=== PATIENT | male | born 1970 | race American Indian/Alaskan Native ===

== ENCOUNTER 2016-08-23 08:46 | Inpatient (IN) | payer OTHER ==
[2016-08-23 09:34] LABS: Basophils % (Auto) 0.9 % (0.0-1.8); Eosinophils % (Auto) 2.7 % (0.0-4.3); Hematocrit 42.8 % (35.5-45.6); Hemoglobin 14.3 gm/dl (11.8-15.2); Mean Corpuscular HGB Conc 33 % (32-34); Mean Corpuscular Hemoglobin 28 pg (28-32); Mean Corpuscular Volume 83 fl (84-94); Platelet Count 167 K/mm3 (140-440); Red Blood Count 5.13 M/mm3 (3.65-5.03); Red Cell Distribution Width 13.9 % (13.2-15.2); White Blood Count 7.5 K/mm3 (4.5-11.0)
--- NOTE | 2016-08-23 09:55 | XRay Report ---
ROUTINE CHEST, TWO VIEWS: HISTORY: Shortness of breath. The trachea, heart, mediastinal contour, lung block and bony thorax are unremarkable. IMPRESSION: Unremarkable chest x-ray.
[2016-08-23 11:01] LABS: BUN/Creatinine Ratio 12.22; Blood Urea Nitrogen 11 mg/dL (9-20); Carbon Dioxide 25 mmol/L (22-30); Glucose 141 mg/dL (75-100)
[2016-08-23 11:02] LABS: Anion Gap 18 mmol/L; Chloride 98.4 mmol/L (98-107); Potassium 3.6 mmol/L (3.6-5.0); Sodium 138 mmol/L (137-145)
--- NOTE | 2016-08-23 17:17 | Emergency Department Report ---
ED Shortness of Breath HPI - General Chief Complaint: Dyspnea/Respdistress Stated Complaint: SOB Time Seen by Provider: 08/23/16 17:03 Source: patient Mode of arrival: Ambulatory Limitations: No Limitations - History of Present Illness Initial Comments: Patient is a 46-year-old male patient hypertension and diabetes presenting to the ER or shortness of breath. Patient reports he's been feeling increasing shortness of breath for the last 2 months, exacerbated with movement and alleviated with rest. Associated dry cough. at the bedside reports patient can barely make it up a flight of stairs or to the bathroom without feeling short of breath. Patient reports orthopnea sleeping on 3 pillows and intermittent swelling of his lower extremities. Patient has no primary care follow-up and reports he gets medications from the ER. at the bedside also reports a unintentional 30 pound weight loss over the last 6 months. Otherwise no fevers, chills, headache, dizziness, nausea, vomiting, chest pain, abdominal pain, travel, trauma, falls, or sick contacts - Related Data Previous Rx's Medication Instructions Recorded Last Taken Type Lisinopril [Zestril TAB] 10 mg PO QDAY #30 tablet 11/04/15 Unknown Rx amLODIPine [Norvasc] 5 mg PO DAILY #30 tab 11/04/15 Unknown Rx glipiZIDE XL [Glucotrol Xl] 5 mg PO QAM #30 tab.er.24 11/04/15 Unknown Rx metFORMIN [Glucophage] 500 mg PO BID #60 tablet 11/04/15 Unknown Rx Allergies Allergy/AdvReac Type Severity Reaction Status Date / Time No Known Allergies Allergy Unverified 11/04/15 10:28 ED Review of Systems ROS: Stated complaint: SOB Other details as noted in HPI Comment: All other systems reviewed and negative ED Past Medical Hx - Past Medical History Previous Medical History?: Yes Hx Hypertension: Yes Hx Dementia: Yes - Surgical History Past Surgical History?: No - Social History Smoking Status: Never Smoker Substance Use Type: Alcohol - Medications Home Medications: Home Medications Medication Instructions Recorded Confirmed Last Taken Type Lisinopril [Zestril TAB] 10 mg PO QDAY #30 tablet 11/04/15 08/23/16 Unknown Rx amLODIPine [Norvasc] 5 mg PO DAILY #30 tab 11/04/15 08/23/16 Unknown Rx glipiZIDE XL [Glucotrol Xl] 5 mg PO QAM #30 tab.er.24 11/04/15 08/23/16 Unknown Rx metFORMIN [Glucophage] 500 mg PO BID #60 tablet 11/04/15 08/23/16 Unknown Rx ED Physical Exam - General Limitations: No Limitations General appearance: alert, in no apparent distress - Head Head exam: Present: atraumatic, normocephalic - Eye Eye exam: Present: normal appearance - ENT ENT exam: Present: mucous membranes moist - Neck Neck exam: Present: normal inspection - Respiratory Respiratory exam: Present: normal lung sounds bilaterally. Absent: respiratory distress - Cardiovascular Cardiovascular Exam: Present: regular rate, normal rhythm. Absent: systolic murmur, diastolic murmur, rubs, gallop - GI/Abdominal GI/Abdominal exam: Present: soft, normal bowel sounds - Rectal Rectal exam: Present: deferred - Extremities Exam Extremities exam: Present: normal inspection - Back Exam Back exam: Present: normal inspection - Neurological Exam Neurological exam: Present: alert, oriented X3 - Psychiatric Psychiatric exam: Present: normal affect, normal mood - Skin Skin exam: Present: warm, dry, intact, normal color. Absent: rash ED Course Vital Signs 08/23/16 08/23/16 08/23/16 08:53 17:10 17:38 Temperature 98.6 F 97.9 F Pulse Rate 95 H 89 Respiratory 16 16 Rate Blood Pressure 151/100 Blood Pressure 151/106 [Left] O2 Sat by Pulse 100 100 98 Oximetry 08/23/16 08/23/16 08/23/16 17:41 17:51 17:58 Temperature Pulse Rate 88 87 Respiratory 19 20 20 Rate Blood Pressure 154/104 162/103 Blood Pressure [Left] O2 Sat by Pulse 100 99 100 Oximetry 08/23/16 08/23/16 08/23/16 18:16 18:21 18:30 Temperature Pulse Rate 91 H 90 85 Respiratory 21 12 Rate Blood Pressure 162/103 161/106 172/115 Blood Pressure [Left] O2 Sat by Pulse 99 98 99 Oximetry 08/23/16 08/23/16 18:45 18:48 Temperature Pulse Rate 89 89 Respiratory Rate Blood Pressure 172/115 Blood Pressure [Left] O2 Sat by Pulse Oximetry ED Medical Decision Making - Lab Data Result diagrams: 08/23/16 09:15 08/23/16 09:15 - EKG Data -: EKG Interpreted by Me - EKG Data 08/23/16 17:16 EKG 0853 normal sinus rhythm at 85 bpm, QTc 476 ms, normal axis, borderline LVH , no ST changes, no STEMI - Radiology Data Radiology results: report reviewed CXR: No acute cardiopulmonary findings no acute cardiopulmonary findings CTA: No acute PE - Medical Decision Making Results discussed with patient Pt to be admitted to hospitalist for new onset CHF Critical care attestation.: If time is entered above; I have spent that time in minutes in the direct care of this critically ill patient, excluding procedure time. ED Disposition Clinical Impression: CHF (congestive heart failure), Dyspnea Disposition: OP ADMIT IP TO THIS HOSP Is pt being admited?: Yes Condition: Stable Instructions: Heart Failure (ED)
[2016-08-23] MEDS ORDERED: NACL ONE (18:09)
[2016-08-23] MEDS ORDERED: NORVASC PO ONE (18:39)
--- NOTE | 2016-08-23 18:46 | Cat Scan Report ---
FINAL REPORT PROCEDURE: CT ANGIO CHEST TECHNIQUE: Computerized tomographic angiography of the chest was performed after the IV injection of iodinated nonionic contrast including image processing. The image data was postprocessed using 2-dimensional multiplanar reformatted (MPR) and 3-dimensional (MIP and/or volume rendered) techniques. HISTORY: rule out PE COMPARISON: No prior studies are available for comparison. FINDINGS: Heart and pericardium: No pericardial effusion or thickening. Thoracic aorta: Normal. Pulmonary vasculature: Normal. Lymph nodes: No enlarged thoracic lymph nodes. Lungs: Normal. Pleural space: No effusion, thickening, or pneumothorax. Musculoskeletal structures: No significant abnormality. Upper abdominal structures: No significant abnormality. IMPRESSION: No evidence of pulmonary emboli
[2016-08-23 19:11] LABS: Bilirubin,Urine NEG (Negative); Blood,Urine NEG (Negative); Ketones,Urine NEG (Negative); Leukocyte Esterase,Urine NEG (Negative); Mucus,Urine FEW /HPF; Nitrite,Urine NEG (Negative); Protein,Urine <15 mg/dL mg/dL (Negative); Urobilinogen,Urine < 2.0 mg/dL (<2.0); WBC,Urine < 1.0 /HPF (0.0-6.0)
--- NOTE | 2016-08-23 19:16 | History and Physical Report ---
History of Present Illness Date of admission: I get short of breath Chief complaint: I cant breathe History of present illness: 46 YO Male with HTN, DM, Medication Noncompliance presents to ED for evaluation. Pt states that he has experienced shortness of breath for the past 2 months, with worsening symptoms over the past 2 days. Pt acknowledges orthopnea, PND. Pt states that he is unable to walk up 2 flights of stars, and has decreased exercise tolerance. Pt states that symptoms are worse with exertion, and relieved with rest. Pt acknowledges Dry cough, and 30 lbs unintentional weight loss, but denies fever, night sweats, bone pain, or recent ill contacts. Past History Past Medical History: diabetes, hypertension Past Surgical History: No surgical history, Other (reviewed) Social history: , lives with family. denies: smoking, alcohol abuse, prescription drug abuse, IV drug use Family history: hypertension Medications and Allergies Allergies Allergy/AdvReac Type Severity Reaction Status Date / Time No Known Allergies Allergy Unverified 11/04/15 10:28 Home Medications Medication Instructions Recorded Confirmed Last Taken Type Lisinopril [Zestril TAB] 10 mg PO QDAY #30 tablet 11/04/15 08/23/16 Unknown Rx glipiZIDE XL [Glucotrol Xl] 5 mg PO QAM #30 tab.er.24 11/04/15 08/23/16 Unknown Rx metFORMIN [Glucophage] 500 mg PO BID #60 tablet 11/04/15 08/23/16 Unknown Rx ALBUTEROL Inhaler [ProAir HFA 2 puff IH QID PRN #1 inhalation 08/24/16 Unknown Rx Inhaler] Carvedilol [Coreg] 6.25 mg PO BID #60 tablet 08/24/16 Unknown Rx Review of Systems All systems: negative Cardiovascular: orthopnea, shortness of breath, paroxysmal nocturnal dyspnea Exam - Constitutional Vitals: Temp Pulse Resp BP Pulse Ox 97.9 F 89 12 172/115 99 08/23/16 17:10 08/23/16 18:48 08/23/16 18:30 08/23/16 18:45 08/23/16 18:30 General appearance: Present: mild distress - Respiratory Respiratory effort: normal Respiratory: bilateral: diminished, rhonchi - Cardiovascular Rhythm: regular Heart Sounds: Present: S1 & S2 - Extremities Extremities: pulses symmetrical, No edema Peripheral Pulses: within normal limits - Abdominal General gastrointestinal: Present: soft, non-tender, non-distended, normal bowel sounds Male genitourinary: Present: normal - Integumentary Integumentary: Present: clear, warm, dry - Musculoskeletal Musculoskeletal: gait normal, strength equal bilaterally - Psychiatric Psychiatric: appropriate mood/affect, intact judgment & insight - Neurologic Neurologic: CNII-XII intact, moves all extremities Results - Labs CBC & Chem 7: 08/23/16 19:31 08/23/16 19:31 Labs: Abnormal lab results 08/23/16 08/23/16 08/23/16 Range/Units 09:15 09:15 09:15 RBC 5.13 H (3.65-5.03) M/mm3 MCV 83 L (84-94) fl Seg Neutrophils % 76.1 H (40.0-70.0) % Glucose 141 H (75-100) mg/dL NT-Pro-B Natriuret Pep 1236 H (0-450) pg/mL Assessment and Plan - Patient Problems (1) Acute respiratory failure Current Visit: Yes Status: Acute Qualifiers: Respiratory failure complication: R Plan to address problem: supplemental oxygen, nebs, aspiration precautions, supportive care, (2) Accelerated hypertension Current Visit: Yes Status: Acute Plan to address problem: monitor bp q shift, resume home medications (3) DVT prophylaxis Current Visit: Yes Status: Acute (4) CHF (congestive heart failure) Current Visit: Yes Status: Acute Qualifiers: Congestive heart failure type: C Congestive heart failure chronicity: C Plan to address problem: cardiology consulted, serial cardiac enzymes, telemetry, supportive care
[2016-08-23] MEDS ORDERED: DUONEB 0.5 MG-3 MG/3 ML SOLN IH PRN (19:17)
[2016-08-23] MEDS ORDERED: DULCOLAX PR PRN (19:17)
[2016-08-23] MEDS ORDERED: TYLENOL PO PRN (19:17)
[2016-08-23] MEDS ORDERED: ZOFRAN IV PRN (19:17)
[2016-08-23] MEDS ORDERED: MILK OF MAGNESIA PO PRN (19:17)
[2016-08-23] MEDS ORDERED: D50W (25GM) IV PRN (19:22)
--- NOTE | 2016-08-23 19:22 | Admit Criteria Form ---
Admission Criteria Documentation: HEART FAILURE: COMMON COMPLICATIONS Clinical Indications for Inpatient Care (Place 'X' for any and all applicable criteria): Ongoing inpatient care may be indicated for heart failure with ANY ONE of the following (1)(2)(3)(4)(5): [ ]I. Ongoing need for care for primary condition requiring frequent therapy adjustments because of changes in cardiac function (eg, drug dosage changes for drugs that are renally metabolized) [X ]II. New-onset heart failure [ ]III. Heart failure with decreased urine output not responsive to attempts to optimize volume status [ ]IV. Acute cardiac ischemia causing or associated with failure [ ]V. Complications of heart failure, including ANY ONE of the following: [ ]a) Pericardial effusion [ ]b) Symptomatic pleural effusion [ ]c) O2 saturation <90% or PO2 < 60 mm Hg (8.0 kPa) on room air or require baseline supplemental O2 [ ]d) Tachypnea [ ]e) Dyspnea [ ]f) Syncope [ ]g) Change in mental status [ ]h) Acute renal insufficiency that is severe (reduction of more than 50% in estimated glomerular filtration rate from baseline) or progressive reduction of more than 25% in estimated glomerular filtration rate from baseline, with creatinine continuing to rise) [ ]i) Hemodynamic instability [ ]j) Anasarca [ ]k) Clinically significant metabolic abnormalities due to heart failure (eg, new-onset metabolic acidosis) Extended stay beyond goal length of stay for primary condition may be needed until ALL of the following are present(1)(3): [ ]a) Stable and effective diuretic regimen established (or patient on stable dialysis regimen if in chronic renal failure) [ ]b) Breathing comfortably at rest [ ]c) Saturation of arterial oxygen greater than 90% or at acceptable baseline [ ]d) Pulmonary edema absent or improved [ ]e) Hemodynamic stability [ ]f) Volume status acceptable on oral medication [ ]g) Peripheral or sacral edema absent or improved [ ]h) Renal function stable and manageable at a lower level of care [ ]i) Complications (eg, pleural effusion) resolved or manageable at a lower level of care [ ]j) Patient or caregiver has received written discharge instructions or educational material addressing activity level, diet, discharge medications, follow-up appointment, weight monitoring, and what to do if symptoms worsen The original [facility] content created by [employer] has been revised. The portions of the content which have been revised are identified through the use of italic text or in bold, and [facility] has neither reviewed nor approved the modified material.All other unmodified content is copyright [facility]. Please see references footnoted in the original [facility] edition 2016 Admission Criteria Met: Yes
[2016-08-23] MEDS ORDERED: PROVENTIL IH PRN ×2 (19:25→19:26)
[2016-08-23 19:57] LABS: Basophils % (Auto) 1.1 % (0.0-1.8); Eosinophils % (Auto) 2.8 % (0.0-4.3); Hematocrit 42.2 % (35.5-45.6); Mean Corpuscular HGB Conc 33 % (32-34); Mean Corpuscular Hemoglobin 27 pg (28-32); Mean Corpuscular Volume 83 fl (84-94); Platelet Count 152 K/mm3 (140-440); Red Cell Distribution Width 14.2 % (13.2-15.2); White Blood Count 5.7 K/mm3 (4.5-11.0)
[2016-08-23 20:11] LABS: Anion Gap 16 mmol/L; BUN/Creatinine Ratio 13.33; Blood Urea Nitrogen 12 mg/dL (9-20); Calcium 8.7 mg/dL (8.4-10.2); Carbon Dioxide 27 mmol/L (22-30); Chloride 99.7 mmol/L (98-107); Glucose 126 mg/dL (75-100); Potassium 3.4 mmol/L (3.6-5.0); Sodium 139 mmol/L (137-145)
[2016-08-23] MEDS: NOVOLOG SUB-Q SCH (22:05)
[2016-08-23] MEDS: LOPRESSOR PO SCH (22:17)
[2016-08-24] MEDS: LASIX IV SCH ×2 (05:46→18:15)
--- NOTE | 2016-08-24 09:19 | Progress Note ---
Assessment and Plan Assessment and plan: Patient is a 46-year-old male patient hypertension and diabetes presenting to the ER or shortness of breath. Patient reports he's been feeling increasing shortness of breath for the last 2 months, exacerbated with movement and alleviated with rest. Associated dry cough. at the bedside reports patient can barely make it up a flight of stairs or to the bathroom without feeling short of breath. Patient reports orthopnea sleeping on 3 pillows and intermittent swelling of his lower extremities. Patient has no primary care follow-up and reports he gets medications from the ER. at the bedside also reports a unintentional 30 pound weight loss over the last 6 months. Otherwise no fevers, chills, headache, dizziness, nausea, vomiting, chest pain, abdominal pain, travel, trauma, falls, or sick contacts * Dyspnea: ?CHF vs Asthma- Lasix, strict ins and out, daily weight, cardiology consult, echo, BB, ACEI, cardiac diet, Heart failure education. * Diabetes mellitus-accuchecks achs * Acute respirtory failure with hypoxia-Wean o2, Nebs, PRN. * Hypokalemia-replace * HTN- BB, ACEI., monitor. * DVT/GI prophy * Discharge if ok with cardiology * Plan discussed with the patient in detail. Verbalized understanding. History Interval history: Patient seen and examined today in no acute distress sitting comfortably at bedside with shortness of breath today. No other adverse events reported by nursing staff. Hospitalist Physical - Physical exam Narrative exam: VITAL SIGNS: Reviewed. GENERAL: The patient appeared well nourished and normally developed. Vital signs as documented. HEAD: No signs of head trauma. EYES: Pupils are equal. Extraocular motions intact. EARS: Hearing grossly intact. MOUTH: Oropharynx is normal. NECK: No adenopathy, no JVD. CHEST: Chest with clear breath sounds bilaterally. No wheezes, rales, or rhonchi. CARDIAC: Regular rate and rhythm. S1 and S2, without murmurs, gallops, or rubs. VASCULAR: Trace edema left lower extremity. Peripheral pulses normal and equal in all extremities. ABDOMEN: Soft, without detectable tenderness. No sign of distention. No rebound or guarding, and no masses palpated. Bowel Sounds normal. MUSCULOSKELETAL: Good range of motion of all major joints. Extremities without clubbing, cyanosis. Trace edema left lower extremity. NEUROLOGIC EXAM: Alert and oriented x 3. No focal sensory or strength deficits. Speech normal. Follows commands. PSYCHIATRIC: Mood normal. SKIN: No rash or lesions. - Constitutional Vitals: Temp Pulse Resp BP Pulse Ox 97.9 F 77 20 135/84 99 08/24/16 04:00 08/24/16 04:00 08/24/16 04:00 08/24/16 04:00 08/24/16 09:01 Results - Labs CBC & Chem 7: 08/23/16 19:31 08/23/16 19:31 Labs: Laboratory Last Values WBC 5.7 K/mm3 (4.5-11.0) 08/23/16 19: RBC 5.10 M/mm3 (3.65-5.03) H 08/23/16 19:31 Hgb 14.0 gm/dl (11.8-15.2) 08/23/16 19:31 Hct 42.2 % (35.5-45.6) 08/23/16 19:31 MCV 83 fl (84-94) L 08/23/16 19:31 MCH 27 pg (28-32) L 08/23/16 19:31 MCHC 33 % (32-34) 08/23/16 19:31 RDW 14.2 % (13.2-15.2) 08/23/16 19:31 Plt Count 152 K/mm3 (140-440) 08/23/16 19:31 Lymph % (Auto) 18.6 % (13.4-35.0) 08/23/16 19:31 [place] % (Auto) 3.5 % (0.0-7.3) 08/23/16 19:31 Eos % (Auto) 2.8 % (0.0-4.3) 08/23/16 19:31 Baso % (Auto) 1.1 % (0.0-1.8) 08/23/16 19:31 Lymph # 1.1 K/mm3 (1.2-5.4) L 08/23/16 19:31 [place] # 0.2 K/mm3 (0.0-0.8) 08/23/16 19:31 Eos # 0.2 K/mm3 (0.0-0.4) 08/23/16 19:31 Baso # 0.1 K/mm3 (0.0-0.1) 08/23/16 19:31 Seg Neutrophils % 74.0 % (40.0-70.0) H 08/23/16 19:31 Seg Neutrophils # 4.2 K/mm3 (1.8-7.7) 08/23/16 19:31 Sodium 139 mmol/L (137-145) 08/23/16 19:31 Potassium 3.4 mmol/L (3.6-5.0) L 08/23/16 19:31 Chloride 99.7 mmol/L (98-107) 08/23/16 19:31 Carbon Dioxide 27 mmol/L (22-30) 08/23/16 19:31 Anion Gap 16 mmol/L 08/23/16 19:31 BUN 12 mg/dL (9-20) 08/23/16 19:31 Creatinine 0.9 mg/dL (0.8-1.5) 08/23/16 19:31 Estimated GFR > 60 ml/min 08/23/16 19:31 BUN/Creatinine Ratio 13.33 % 08/23/16 19:31 Glucose 126 mg/dL (75-100) H 08/23/16 19:31 POC Glucose 119 (70-105) H 08/23/16 22:00 Calcium 8.7 mg/dL (8.4-10.2) 08/23/16 19:31 Troponin T < 0.010 ng/mL (0.00-0.029) 08/24/16 03:30 NT-Pro-B Natriuret Pep 1236 pg/mL (0-450) H 08/23/16 09:15 Urine Color Yellow (Yellow) 08/23/16 17:14 Urine Turbidity Clear (Clear) 08/23/16 17:14 Urine pH 6.0 (5.0-7.0) 08/23/16 17:14 Ur Specific Pitcher 1.024 (1.003-1.030) 08/23/16 17:14 Urine Protein <15 mg/dl mg/dL (Negative) 08/23/16 17:14 Urine Glucose (UA) Neg mg/dL (Negative) 08/23/16 17:14 Urine Ketones Neg mg/dL (Negative) 08/23/16 17:14 Urine Blood Neg (Negative) 08/23/16 17:14 Urine Nitrite Neg (Negative) 08/23/16 17:14 Urine Bilirubin Neg (Negative) 08/23/16 17:14 Urine Urobilinogen < 2.0 mg/dL (<2.0) 08/23/16 17:14 Ur Leukocyte Esterase Neg (Negative) 08/23/16 17:14 Urine WBC (Auto) < 1.0 /HPF (0.0-6.0) 08/23/16 17:14 Urine RBC (Auto) 1.0 /HPF (0.0-6.0) 08/23/16 17:14 U Epithel Cells (Auto) < 1.0 /HPF (0-13.0) 08/23/16 17:14 Urine Mucus Few /HPF 08/23/16 17:14
[2016-08-24] MEDS ORDERED: ZESTRIL PO SCH ×2 (10:00→13:49)
[2016-08-24] MEDS: NOVOLOG SUB-Q SCH ×2 (10:37→21:56)
[2016-08-24] MEDS: LOPRESSOR PO SCH ×2 (10:39→21:56)
--- NOTE | 2016-08-24 10:53 | Discharge Summary ---
Providers - Providers Date of Admission: 08/23/16 19:17 Date of discharge: 08/24/16 Attending physician: NEW FRANCIS MD 08/24/16 09:13 Consult to Physician [CONS] Routine Consulting Provider: GUADALUPE FLORES Reason For Exam: chf Primary care physician: POSTDOCTORAL FELLOW Hospitalization Condition: Stable Disposition: DC-01 TO HOME OR SELFCARE Time spent for discharge: 35 mins Exam - Constitutional Vitals: Temp Pulse Resp BP Pulse Ox 98.6 F 74 20 165/103 99 08/24/16 08:10 08/24/16 10:39 08/24/16 08:10 08/24/16 10:39 08/24/16 09:01 Plan Activity: advance as tolerated, fall precautions Diet: low salt, diabetic Special Instructions: restrict fluid intake to (1200cc/day), record daily weights, record daily BP diary Follow up with: ALEJANDRO JEAN MD [Primary Care Provider] - 3-5 Days GUADALUPE FLORES MD [Staff Physician] - 7 Days Prescriptions: ALBUTEROL Inhaler [ProAir HFA Inhaler] 2 puff IH QID PRN #1 inhalation PRN Reason: Shortness Of Breath Carvedilol [Coreg] 12.5 mg PO BID #60 tablet Spironolactone [Aldactone] 25 mg PO QDAY #30 tablet
[2016-08-24] MEDS ORDERED: K-DUR PO ONE (11:00)
[2016-08-24] MEDS ORDERED: PNEUMOVAX 23 IM ONE (12:00)
--- NOTE | 2016-08-24 13:42 | Consultation ---
History of Present Illness Consult date: 08/24/16 Requesting physician: NEW ZAVALA Consult reason: congestive heart failure History of present illness: The patient is a 46 year old male with a history of hypertension and diabetes who presented with complaints of progressive dyspnea and orthopnea over the past 2 months. He denies any chest pain, palpitations, nausea, vomiting, fever or chills. Chest CTA negative for PE. Troponin negative x 4. BNP 1236. Pt. denies previous diagnosis of heart failure. No previous cardiac evaluation. Past History Past Medical History: diabetes, hypertension Past Surgical History: No surgical history Social history: full code. denies: smoking, alcohol abuse, IV drug use Family history: no significant family history Medications and Allergies Allergies Allergy/AdvReac Type Severity Reaction Status Date / Time No Known Allergies Allergy Unverified 11/04/15 10:28 Home Medications Medication Instructions Recorded Confirmed Last Taken Type Lisinopril [Zestril TAB] 10 mg PO QDAY #30 tablet 11/04/15 08/23/16 Unknown Rx glipiZIDE XL [Glucotrol Xl] 5 mg PO QAM #30 tab.er.24 11/04/15 08/23/16 Unknown Rx metFORMIN [Glucophage] 500 mg PO BID #60 tablet 11/04/15 08/23/16 Unknown Rx ALBUTEROL Inhaler [ProAir HFA 2 puff IH QID PRN #1 inhalation 08/24/16 Unknown Rx Inhaler] Carvedilol [Coreg] 6.25 mg PO BID #60 tablet 08/24/16 Unknown Rx Active Meds: Active Medications Acetaminophen (Tylenol) 650 mg PO Q4H PRN PRN Reason: Pain MILD(1-3)/Fever >100.5/LEON Albuterol (Proventil) 2.5 mg IH Q4HRT PRN PRN Reason: Shortness Of Breath Bisacodyl (Dulcolax) 10 mg ID QDAY PRN PRN Reason: Constipation unrelieved by MOM Dextrose (D50w (25gm)) 50 ml IV PRN PRN PRN Reason: Hypoglycemia Furosemide (Lasix) 20 mg IV BID@0600,1800 [facility] Last Admin: 08/24/16 05:46 Dose: 20 mg Insulin Aspart (Novolog) 0 units SUB-Q ACHS ADITI PRN Reason: Protocol Last Admin: 08/24/16 10:37 Dose: Not Given Lisinopril (Zestril) 2.5 mg PO QDAY [facility] Last Admin: 08/24/16 10:38 Dose: 2.5 mg Magnesium Hydroxide (Milk Of Magnesia) 30 ml PO Q4H PRN PRN Reason: Constipation Metoprolol Tartrate (Lopressor) 25 mg PO BID [facility] Last Admin: 08/24/16 10:39 Dose: 25 mg Ondansetron HCl (Zofran) 4 mg IV Q8H PRN PRN Reason: N/V unrelieved by [facility] Review of Systems Constitutional: no fever, no chills Ears, nose, mouth and throat: no nasal congestion, no nasal discharge, no sinus pressure Cardiovascular: orthopnea, shortness of breath, dyspnea on exertion, no chest pain, no palpitations Respiratory: shortness of breath, dyspnea on exertion, no congestion, no wheezing Gastrointestinal: no abdominal pain, no nausea, no vomiting, no diarrhea Genitourinary Male: no dysuria, no hematuria Musculoskeletal: no neck stiffness, no neck pain, no myalgias Integumentary: no rash, no pruritis Neurological: no parathesias, no numbness, no tingling, no headaches Endocrine: no cold intolerance, no heat intolerance Hematologic/Lymphatic: no easy bruising, no easy bleeding Allergic/Immunologic: no urticaria, no wheezing Physical Examination Vital Signs Temp Pulse Resp BP Pulse Ox 98.6 F 95 H 16 151/100 100 08/23/16 08:53 08/23/16 08:53 08/23/16 08:53 08/23/16 08:53 08/23/16 08:53 General appearance: no acute distress HEENT: Positive: Normocephaly, Mucus Membranes Moist Neck: Positive: neck supple, trachea midline Cardiac: Positive: Reg Rate and Rhythm, S1/S2 Lungs: Positive: clear to auscultation Neuro: Positive: Grossly Intact Abdomen: Positive: Soft, Active Bowel Sounds. Negative: Tender Skin: Positive: Clear. Negative: Rash Extremities: Present: normal. Absent: edema Results 08/23/16 19:31 08/23/16 19:31 CBC 08/23/16 Range/Units 19:31 WBC 5.7 (4.5-11.0) K/mm3 RBC 5.10 H (3.65-5.03) M/mm3 Hgb 14.0 (11.8-15.2) gm/dl Hct 42.2 (35.5-45.6) % Plt Count 152 (140-440) K/mm3 Lymph # 1.1 L (1.2-5.4) K/mm3 [place] # 0.2 (0.0-0.8) K/mm3 Eos # 0.2 (0.0-0.4) K/mm3 Baso # 0.1 (0.0-0.1) K/mm3 Comprehensive Metabolic Panel 08/23/16 Range/Units 19:31 Sodium 139 (137-145) mmol/L Potassium 3.4 L (3.6-5.0) mmol/L Chloride 99.7 (98-107) mmol/L Carbon Dioxide 27 (22-30) mmol/L BUN 12 (9-20) mg/dL Creatinine 0.9 (0.8-1.5) mg/dL Glucose 126 H (75-100) mg/dL Calcium 8.7 (8.4-10.2) mg/dL - Imaging and Cardiology Echo: pending EKG: image reviewed EKG interpretations - Telemetry EKG Rhythm: Sinus Rhythm - EKG Sinus rhythms and dysrhythmias: sinus rhythm Chamber hypertrophy or enlargement: left ventricular hypertro Repolarization changes or abnormalities: nonspecific abnormality, ST segment, and/or T wave Assessment and Plan Dyspnea, possible acute heart failure Chest CTA negative for PE Troponin negative x 4 BNP 1236 Continue lasix, metoprolol, lisinopril Await echo findings Pt. encouraged to ambulate Hypertension Diabetes Agree with current regimen. Await echo findings. Pt. encouraged to ambulate. The patient has been seen in conjunction with Dr. Reynoso who agrees with the assessment and plan of care. Thank you Dr. Zavala for allowing us to participate in the care of this patient.
[2016-08-24] MEDS: ZESTRIL PO SCH (18:14)
[2016-08-25] MEDS: LASIX IV SCH ×2 (05:03→18:18)
[2016-08-25] MEDS: NOVOLOG SUB-Q SCH ×5 (08:27→21:18)
[2016-08-25] MEDS: ZESTRIL PO SCH (11:13)
[2016-08-25] MEDS: LOPRESSOR PO SCH (11:13)
--- NOTE | 2016-08-25 12:10 | Progress Note ---
Assessment and Plan Acute systolic heart failure Chest CTA negative for PE Troponin negative x 4 BNP 1236 Continue lasix, lisinopril. Convert lopressor to Coreg. Pt. encouraged to ambulate CMP EF 30 - 35%. Convert lopressor to Coreg. Plan for lexiscan MPI stress test in AM. NPO after MN. Hypertension Diabetes Echo reviewed - EF 30 - 35%, restrictive LV diastolic filling pattern, LV mild to moderately dilated, mild MR< trace TR. Convert Lopressor to Coreg in setting of CMP. Add aldactone. Plan for lexiscan MPI stress test in AM. NPO after MN. Obtain lipid panel in AM. The patient has been seen in conjunction with Dr. Reynoso who agrees with the assessment and plan of care. Subjective Date of service: 08/25/16 Principal diagnosis: HF Interval history: Pt resting comfortably in bed, denies any complaints, VSS. Objective Vital Signs Temp Pulse Pulse Resp BP BP Pulse Ox 08/25/16 08:47 77 08/25/16 04:00 62 08/25/16 01:58 98.8 F 77 20 154/98 100 08/24/16 21:00 98.3 F 76 18 165/100 08/24/16 18:14 175/114 08/24/16 16:37 98.6 F 83 18 175/114 99 - Physical Examination General: Appears Well, No Apparent Distress HEENT: Positive: PERRL, Normocephaly, Mucus Membranes Moist Neck: Positive: neck supple, trachea midline Cardiac: Positive: Reg Rate and Rhythm, S1/S2 Lungs: Positive: clear to auscultation Neuro: Positive: Grossly Intact Abdomen: Positive: Soft, Active Bowel Sounds. Negative: Tender Skin: Positive: Clear. Negative: Rash Extremities: Present: normal. Absent: edema - Imaging and Cardiology EKG: image reviewed Echo: report reviewed - EKG Sinus rhythms and dysrhythmias: sinus rhythm Chamber hypertrophy or enlargement: left ventricular hypertro Repolarization changes or abnormalities: nonspecific abnormality, ST segment, and/or T wave
--- NOTE | 2016-08-25 16:23 | Progress Note ---
Assessment and Plan Assessment and plan: Patient is a 46-year-old male patient hypertension and diabetes presenting to the ER or shortness of breath. Patient reports he's been feeling increasing shortness of breath for the last 2 months, exacerbated with movement and alleviated with rest. Associated dry cough. at the bedside reports patient can barely make it up a flight of stairs or to the bathroom without feeling short of breath. Patient reports orthopnea sleeping on 3 pillows and intermittent swelling of his lower extremities. Patient has no primary care follow-up and reports he gets medications from the ER. at the bedside also reports a unintentional 30 pound weight loss over the last 6 months. Otherwise no fevers, chills, headache, dizziness, nausea, vomiting, chest pain, abdominal pain, travel, trauma, falls, or sick contacts * Acute systolic heart failure- EF 30 - 35%, restrictive LV diastolic filling pattern, LV mild to moderately dilated. continue Lasix, strict ins and out, daily weight, BB, ACEI, aldactone added, Cardiac diet, Heart failure education. Lipid panel. stress test planned in the am. * Diabetes mellitus-accuchecks achs * Acute respirtory failure with hypoxia-Wean o2, Nebs, PRN. * Hypokalemia-replace * HTN- BB, ACEI., monitor. * DVT/GI prophy * Discharge if ok with cardiology * Plan discussed with the patient in detail. He Verbalized understanding. History Interval history: Patient seen and examined today in no acute distress sitting comfortably at bedside with no reported shortness of breath today. No other adverse events reported by nursing staff. Hospitalist Physical - Physical exam Narrative exam: VITAL SIGNS: Reviewed. GENERAL: The patient appeared well nourished and normally developed. Vital signs as documented. HEAD: No signs of head trauma. EYES: Pupils are equal. Extraocular motions intact. EARS: Hearing grossly intact. MOUTH: Oropharynx is normal. NECK: No adenopathy, no JVD. CHEST: Chest with clear breath sounds bilaterally. No wheezes, rales, or rhonchi. CARDIAC: Regular rate and rhythm. S1 and S2, without murmurs, gallops, or rubs. VASCULAR: Trace edema left lower extremity. Peripheral pulses normal and equal in all extremities. ABDOMEN: Soft, without detectable tenderness. No sign of distention. No rebound or guarding, and no masses palpated. Bowel Sounds normal. MUSCULOSKELETAL: Good range of motion of all major joints. Extremities without clubbing, cyanosis. Trace edema left lower extremity. NEUROLOGIC EXAM: Alert and oriented x 3. No focal sensory or strength deficits. Speech normal. Follows commands. PSYCHIATRIC: Mood normal. SKIN: No rash or lesions. - Constitutional Vitals: Temp Pulse Resp BP Pulse Ox 98.0 F 92 H 12 147/92 100 08/25/16 15:11 08/25/16 15:11 08/25/16 15:11 08/25/16 15:11 08/25/16 15:11 General appearance: Present: mild distress Results - Labs CBC & Chem 7: 08/23/16 19:31 08/23/16 19:31 Labs: Laboratory Last Values WBC 5.7 K/mm3 (4.5-11.0) 08/23/16 19:31 RBC 5.10 M/mm3 (3.65-5.03) H 08/23/16 19:31 Hgb 14.0 gm/dl (11.8-15.2) 08/23/16 19:31 Hct 42.2 % (35.5-45.6) 08/23/16 19:31 MCV 83 fl (84-94) L 08/23/16 19:31 MCH 27 pg (28-32) L 08/23/16 19:31 MCHC 33 % (32-34) 08/23/16 19:31 RDW 14.2 % (13.2-15.2) 08/23/16 19:31 Plt Count 152 K/mm3 (140-440) 08/23/16 19:31 Lymph % (Auto) 18.6 % (13.4-35.0) 08/23/16 19:31 [place] % (Auto) 3.5 % (0.0-7.3) 08/23/16 19:31 Eos % (Auto) 2.8 % (0.0-4.3) 08/23/16 19:31 Baso % (Auto) 1.1 % (0.0-1.8) 08/23/16 19:31 Lymph # 1.1 K/mm3 (1.2-5.4) L 08/23/16 19:31 [place] # 0.2 K/mm3 (0.0-0.8) 08/23/16 19:31 Eos # 0.2 K/mm3 (0.0-0.4) 08/23/16 19:31 Baso # 0.1 K/mm3 (0.0-0.1) 08/23/16 19:31 Seg Neutrophils % 74.0 % (40.0-70.0) H 08/23/16 19:31 Seg Neutrophils # 4.2 K/mm3 (1.8-7.7) 08/23/16 19:31 Sodium 139 mmol/L (137-145) 08/23/16 19:31 Potassium 3.4 mmol/L (3.6-5.0) L 08/23/16 19:31 Chloride 99.7 mmol/L (98-107) 08/23/16 19:31 Carbon Dioxide 27 mmol/L (22-30) 08/23/16 19:31 Anion Gap 16 mmol/L 08/23/16 19:31 BUN 12 mg/dL (9-20) 08/23/16 19:31 Creatinine 0.9 mg/dL (0.8-1.5) 08/23/16 19:31 Estimated GFR > 60 ml/min 08/23/16 19:31 BUN/Creatinine Ratio 13.33 % 08/23/16 19:31 Glucose 126 mg/dL (75-100) H 08/23/16 19:31 POC Glucose 131 (70-105) H 08/24/16 21:36 Calcium 8.7 mg/dL (8.4-10.2) 08/23/16 19:31 Troponin T < 0.010 ng/mL (0.00-0.029) 08/24/16 03:30 NT-Pro-B Natriuret Pep 1236 pg/mL (0-450) H 08/23/16 09:15 Urine Color Yellow (Yellow) 08/23/16 17:14 Urine Turbidity Clear (Clear) 08/23/16 17:14 Urine pH 6.0 (5.0-7.0) 08/23/16 17:14 Ur Specific [place] 1.024 (1.003-1.030) 08/23/16 17:14 Urine Protein <15 mg/dl mg/dL (Negative) 08/23/16 17:14 Urine Glucose (UA) Neg mg/dL (Negative) 08/23/16 17:14 Urine Ketones Neg mg/dL (Negative) 08/23/16 17:14 Urine Blood Neg (Negative) 08/23/16 17:14 Urine Nitrite Neg (Negative) 08/23/16 17:14 Urine Bilirubin Neg (Negative) 08/23/16 17:14 Urine Urobilinogen < 2.0 mg/dL (<2.0) 08/23/16 17:14 Ur Leukocyte Esterase Neg (Negative) 08/23/16 17:14 Urine WBC (Auto) < 1.0 /HPF (0.0-6.0) 08/23/16 17:14 Urine RBC (Auto) 1.0 /HPF (0.0-6.0) 08/23/16 17:14 U Epithel Cells (Auto) < 1.0 /HPF (0-13.0) 08/23/16 17:14 Urine Mucus Few /HPF 08/23/16 17:14 - Imaging and Cardiology Imaging and Cardiology: Echocardiogram reviewed.
[2016-08-25] MEDS: ALDACTONE PO SCH (18:17)
[2016-08-25] MEDS: COREG PO SCH (21:17)
[2016-08-26] MEDS: LASIX IV SCH (05:58)
[2016-08-26 06:13] LABS: Anion Gap 17 mmol/L; BUN/Creatinine Ratio 23.75; Blood Urea Nitrogen 19 mg/dL (9-20); Calcium 8.4 mg/dL (8.4-10.2); Carbon Dioxide 25 mmol/L (22-30); Chloride 103.2 mmol/L (98-107); Glucose 151 mg/dL (75-100); Potassium 3.7 mmol/L (3.6-5.0); Sodium 141 mmol/L (137-145)
[2016-08-26 06:21] LABS: Cholesterol 140 mg/dL (50-199); HDL Cholesterol 37 mg/dL (40-59); LDL Cholesterol,Direct 86 mg/dL (50-130); Triglycerides 87 mg/dL (2-149)
[2016-08-26] MEDS: NOVOLOG SUB-Q SCH ×4 (07:07→21:55)
[2016-08-26] MEDS ORDERED: LEXISCAN IV ONE ×2 (09:47→09:50)
[2016-08-26] MEDS: ZESTRIL PO SCH (10:05)
[2016-08-26] MEDS: ALDACTONE PO SCH (10:06)
[2016-08-26] MEDS: COREG PO SCH ×2 (10:07→21:53)
--- NOTE | 2016-08-26 10:48 | Progress Note ---
Assessment and Plan Acute systolic heart failure Chest CTA negative for PE Troponin negative x 4 BNP 1236 Continue lisinopril, coreg. Convert IV lasix to PO, 40mg daily. CMP EF 30 - 35%. Cont ACEI, BB, and aldactone. Proceed with stress test. Await findings. Hypertension Diabetes Dyslipidemia Lipid panel reviewed - in setting of DM, goal LDL is <70. Initiate lipitor, 20mg daily. Proceed with stress MPI. Await findings. Pending stress test is negative for ischemia, pt may discharge home today. The patient has been seen in conjunction with Dr. REYNA Hilliard who agrees with the assessment and plan of care. Subjective Date of service: 08/26/16 Principal diagnosis: HF Interval history: Pt seen in stress lab, denies any complaints. VSS. Objective Last Vital Signs Temp 98.0 F 08/26/16 04:52 Pulse 60 08/26/16 05:00 Resp 18 08/26/16 04:52 BP 122/80 08/26/16 04:52 Pulse Ox 98 08/26/16 04:52 - Physical Examination General: Appears Well, No Apparent Distress HEENT: Positive: PERRL, Normocephaly, Mucus Membranes Moist Neck: Positive: neck supple, trachea midline Cardiac: Positive: Reg Rate and Rhythm, S1/S2 Lungs: Positive: Normal Exam, clear to auscultation, Normal Breath Sounds Neuro: Positive: Grossly Intact Abdomen: Positive: Soft, Active Bowel Sounds. Negative: Tender Skin: Positive: Clear. Negative: Rash Extremities: Present: normal. Absent: edema - Labs and Meds Lipids 08/26/16 Range/Units 05:11 Triglycerides 87 (2-149) mg/dL Cholesterol 140 (50-199) mg/dL HDL Cholesterol 37 L (40-59) mg/dL Cholesterol/HDL Ratio 3.78 % Comprehensive Metabolic Panel 08/26/16 Range/Units 05:11 Sodium 141 (137-145) mmol/L Potassium 3.7 (3.6-5.0) mmol/L Chloride 103.2 (98-107) mmol/L Carbon Dioxide 25 (22-30) mmol/L BUN 19 (9-20) mg/dL Creatinine 0.8 (0.8-1.5) mg/dL Glucose 151 H (75-100) mg/dL Calcium 8.4 (8.4-10.2) mg/dL - Imaging and Cardiology EKG: image reviewed Echo: report reviewed - EKG Sinus rhythms and dysrhythmias: sinus rhythm Chamber hypertrophy or enlargement: left ventricular hypertro Repolarization changes or abnormalities: nonspecific abnormality, ST segment, and/or T wave
--- NOTE | 2016-08-26 14:17 | Event Note ---
Date: 08/26/16 S/p stress test this AM, which showed fixed inferior and anterolateral defects, EF 31%. Results reviewed with pt. Coronary angiography recommended for definitive diagnosis. Indications, potential risks, and benefits of LHC reviewed with pt and he is agreeable to proceed with LHC in AM. NPO after MN. Zafar QIU NP / DR. REYNA DICKINSON
[2016-08-26] MEDS ORDERED: NACL 0.9% 500 ML 500 ML IV SCH (15:00)
--- NOTE | 2016-08-26 17:13 | Progress Note ---
Assessment and Plan Assessment and plan: Patient is a 46-year-old male patient hypertension and diabetes presenting to the ER or shortness of breath. Patient reports he's been feeling increasing shortness of breath for the last 2 months, exacerbated with movement and alleviated with rest. Associated dry cough. at the bedside reports patient can barely make it up a flight of stairs or to the bathroom without feeling short of breath. Patient reports orthopnea sleeping on 3 pillows and intermittent swelling of his lower extremities. Patient has no primary care follow-up and reports he gets medications from the ER. at the bedside also reports a unintentional 30 pound weight loss over the last 6 months. Otherwise no fevers, chills, headache, dizziness, nausea, vomiting, chest pain, abdominal pain, travel, trauma, falls, or sick contacts * Acute systolic heart failure- EF 30 - 35%, restrictive LV diastolic filling pattern, LV mild to moderately dilated. Patient proceeded to have a stress test "Verdana 4Id showed fixed inferior and anterolateral defects, EF 31%" Plan is for cardiac cath tomorrow. continue Lasix, strict ins and out, daily weight, BB, ACEI, aldactone added, Cardiac diet, Heart failure education. Lipid panel. stress test planned in the am. * Diabetes mellitus-accuchecks achs * Acute respirtory failure with hypoxia-Now on room air, Nebs, PRN. * Hypokalemia-replaced * HTN- BB, ACEI., monitor. * DVT/GI prophy * Plan discussed with the patient in detail. He Verbalized understanding. History Interval history: Patient seen and examined today in no acute distress anxious about discharge. No other adverse events reported by nursing staff. Hospitalist Physical - Physical exam Narrative exam: VITAL SIGNS: Reviewed. GENERAL: The patient appeared well nourished and normally developed. Vital signs as documented. HEAD: No signs of head trauma. EYES: Pupils are equal. Extraocular motions intact. EARS: Hearing grossly intact. MOUTH: Oropharynx is normal. NECK: No adenopathy, no JVD. CHEST: Chest with clear breath sounds bilaterally. No wheezes, rales, or rhonchi. CARDIAC: Regular rate and rhythm. S1 and S2, without murmurs, gallops, or rubs. VASCULAR: Trace edema left lower extremity. Peripheral pulses normal and equal in all extremities. ABDOMEN: Soft, without detectable tenderness. No sign of distention. No rebound or guarding, and no masses palpated. Bowel Sounds normal. MUSCULOSKELETAL: Good range of motion of all major joints. Extremities without clubbing, cyanosis. Trace edema left lower extremity. NEUROLOGIC EXAM: Alert and oriented x 3. No focal sensory or strength deficits. Speech normal. Follows commands. PSYCHIATRIC: Mood normal. SKIN: No rash or lesions. - Constitutional Vitals: Temp Pulse Resp BP Pulse Ox 98.2 F 77 18 153/94 98 08/26/16 16:59 08/26/16 16:59 08/26/16 16:59 08/26/16 16:59 08/26/16 16:59 General appearance: Present: mild distress Results - Labs CBC & Chem 7: 08/23/16 19:31 08/26/16 05:11 Labs: Laboratory Last Values WBC 5.7 K/mm3 (4.5-11.0) 08/23/16 19:31 RBC 5.10 M/mm3 (3.65-5.03) H 08/23/16 19:31 Hgb 14.0 gm/dl (11.8-15.2) 08/23/16 19:31 Hct 42.2 % (35.5-45.6) 08/23/16 19:31 MCV 83 fl (84-94) L 08/23/16 19:31 MCH 27 pg (28-32) L 08/23/16 19:31 MCHC 33 % (32-34) 08/23/16 19:31 RDW 14.2 % (13.2-15.2) 08/23/16 19:31 Plt Count 152 K/mm3 (140-440) 08/23/16 19:31 Lymph % (Auto) 18.6 % (13.4-35.0) 08/23/16 19:31 [place] % (Auto) 3.5 % (0.0-7.3) 08/23/16 19:31 Eos % (Auto) 2.8 % (0.0-4.3) 08/23/16 19:31 Baso % (Auto) 1.1 % (0.0-1.8) 08/23/16 19:31 Lymph # 1.1 K/mm3 (1.2-5.4) L 08/23/16 19:31 [place] # 0.2 K/mm3 (0.0-0.8) 08/23/16 19:31 Eos # 0.2 K/mm3 (0.0-0.4) 08/23/16 19:31 Baso # 0.1 K/mm3 (0.0-0.1) 08/23/16 19:31 Seg Neutrophils % 74.0 % (40.0-70.0) H 08/23/16 19:31 Seg Neutrophils # 4.2 K/mm3 (1.8-7.7) 08/23/16 19:31 Sodium 141 mmol/L (137-145) 08/26/16 05:11 Potassium 3.7 mmol/L (3.6-5.0) 08/26/16 05:11 Chloride 103.2 mmol/L (98-107) 08/26/16 05:11 Carbon Dioxide 25 mmol/L (22-30) 08/26/16 05:11 Anion Gap 17 mmol/L 08/26/16 05:11 BUN 19 mg/dL (9-20) 08/26/16 05:11 Creatinine 0.8 mg/dL (0.8-1.5) 08/26/16 05:11 Estimated GFR > 60 ml/min 08/26/16 05:11 BUN/Creatinine Ratio 23.75 % 08/26/16 05:11 Glucose 151 mg/dL (75-100) H 08/26/16 05:11 POC Glucose 160 (70-105) H 08/25/16 20:30 Calcium 8.4 mg/dL (8.4-10.2) 08/26/16 05:11 Troponin T < 0.010 ng/mL (0.00-0.029) 08/24/16 03:30 NT-Pro-B Natriuret Pep 1236 pg/mL (0-450) H 08/23/16 09:15 Triglycerides 87 mg/dL (2-149) 08/26/16 05:11 Cholesterol 140 mg/dL (50-199) 08/26/16 05:11 LDL Cholesterol Direct 86 mg/dL (50-130) 08/26/16 05:11 HDL Cholesterol 37 mg/dL (40-59) L 08/26/16 05:11 Cholesterol/HDL Ratio 3.78 % 08/26/16 05:11 Urine Color Yellow (Yellow) 08/23/16 17:14 Urine Turbidity Clear (Clear) 08/23/16 17:14 Urine pH 6.0 (5.0-7.0) 08/23/16 17:14 Ur Specific [place] 1.024 (1.003-1.030) 08/23/16 17:14 Urine Protein <15 mg/dl mg/dL (Negative) 08/23/16 17:14 Urine Glucose (UA) Neg mg/dL (Negative) 08/23/16 17:14 Urine Ketones Neg mg/dL (Negative) 08/23/16 17:14 Urine Blood Neg (Negative) 08/23/16 17:14 Urine Nitrite Neg (Negative) 08/23/16 17:14 Urine Bilirubin Neg (Negative) 08/23/16 17:14 Urine Urobilinogen < 2.0 mg/dL (<2.0) 08/23/16 17:14 Ur Leukocyte Esterase Neg (Negative) 08/23/16 17:14 Urine WBC (Auto) < 1.0 /HPF (0.0-6.0) 08/23/16 17:14 Urine RBC (Auto) 1.0 /HPF (0.0-6.0) 08/23/16 17:14 U Epithel Cells (Auto) < 1.0 /HPF (0-13.0) 08/23/16 17:14 Urine Mucus Few /HPF 08/23/16 17:14
[2016-08-27 05:49] LABS: Eosinophils % (Auto) 2.5 % (0.0-4.3); Hematocrit 40.8 % (35.5-45.6); Hemoglobin 13.4 gm/dl (11.8-15.2); Mean Corpuscular HGB Conc 33 % (32-34); Mean Corpuscular Hemoglobin 27 pg (28-32); Mean Corpuscular Volume 83 fl (84-94); Platelet Count 173 K/mm3 (140-440); Red Blood Count 4.91 M/mm3 (3.65-5.03); Red Cell Distribution Width 14.1 % (13.2-15.2); White Blood Count 6.6 K/mm3 (4.5-11.0)
[2016-08-27 05:50] LABS: Anion Gap 16 mmol/L; BUN/Creatinine Ratio 25.55; Blood Urea Nitrogen 23 mg/dL (9-20); Calcium 8.7 mg/dL (8.4-10.2); Carbon Dioxide 25 mmol/L (22-30); Chloride 102.7 mmol/L (98-107); Glucose 150 mg/dL (75-100); Potassium 3.7 mmol/L (3.6-5.0); Sodium 140 mmol/L (137-145)
[2016-08-27 06:02] LABS: INR 1.15 (0.87-1.13)
[2016-08-27] MEDS ORDERED: HEPARIN 10,000 UNITS/10 ML ONE (07:23)
[2016-08-27] MEDS ORDERED: CALAN ONE (07:23)
[2016-08-27] MEDS ORDERED: HEPARIN/NS 5000 UNIT/500ML(CATH LAB) 1,000 ML IR ONE (07:23)
[2016-08-27] MEDS ORDERED: NACL 0.9% 500 ML 500 ML ONE (07:24)
[2016-08-27] MEDS ORDERED: NITROGLYCERIN SYRINGE 3 ML ONE (07:24)
[2016-08-27] MEDS: XYLOCAINE 2% INFILTRATI ONE ×2 (07:48→08:01)
[2016-08-27] MEDS: VERSED ONE ×2 (07:49→07:50)
[2016-08-27] MEDS: SUBLIMAZE ONE ×2 (07:49→07:57)
[2016-08-27] MEDS: CALAN ONE ×2 (07:49→08:02)
[2016-08-27] MEDS: NOVOLOG SUB-Q SCH ×2 (08:00→13:10)
--- NOTE | 2016-08-27 08:46 | Prelim Cardiac Cath Report ---
Preliminary Cath Report - Hemodynamic Findings Aorta(AO): 132/89 Left Ventricular(LV): 135/36 End Diastolic Pressure(EDP): 36 - Other Findings Estimated blood loss: none Dominance: right Estimated Ejection Fraction: 35 LV Contractility: mildly diffuse hypokinesis. EF 35-40%. Coronary Anatomy: Cardiac catheterization procedure: Patient is the history of diabetes mellitus, hypertension, noncompliant with medications and presented with increasing shortness of breath and orthopnea. Echocardiogram showed ejection fraction of 35%. He has abnormal nuclear imaging. Because of his low ejection fraction is scheduled for cardiac catheterization to rule out underlying coronary disease. Patient was explained of the procedure, potential complications and alternatives of therapy available. Patient was brought to the catheterization laboratory in a fasting condition. Right wrist area was thoroughly cleansed with chlorhexidine solution. Sterile drapes were applied. Local anesthesia was given using 2% Xylocaine. Right radial artery puncture was made and using 21-gauge arterial puncture needle. Subsequently 5 [place] sheath was introduced. Patient was given 5 mg of intraarterial verpamil and 3000 units of intravenous heparin. Using JR4 catheter, angiograms of the left coronary artery were obtained in multiple views. A JR4 catheter was used to obtain angiograms of the right coronary artery in multiple views. Using the same catheter left ventricular gram was performed using limited amount of dye and hand injection. Pressures were measured during pullback. At the end of the procedure catheter and sheath were removed and good hemostasis was achieved with pressure bandage. No untoward complications were noted. Patient tolerated the procedure well. Left coronary artery: Arises normally from left coronary cusp. LAD in the very distal part where it curves around the apex, shows very focal 60% smooth lesion. Otherwise rest of the LAD and its branches, circumflex artery and its branches are angiographically smooth and normal. Right Coronary Artery: Dominant vessel, arises normally from right coronary cusp. Angiographically smooth and normal. Left ventriculogram: Was performed using hand injection. Only limited amount of dye was injected. There is mild diffuse hypokinesis. Overall ejection fraction was felt to be around 35-40%. Mitral regurgitation could not be evaluated. Post Diagnosis: Dilated cardiomyopathy very focal and very distal 60% LAD lesion. Ejection fraction 35-40%. Recommendations: Follow up in office (continued aggressive medical therapy.)
--- NOTE | 2016-08-27 09:00 | Progress Note ---
Assessment and Plan Acute systolic heart failure Chest CTA negative for PE Troponin negative x 4 BNP 1236 Continue lisinopril, coreg, PO lasix/aldactone Abnormal stress test Stress MPI 08/26: fixed inferior and anterolateral defects, EF 31% [facility] today: 60% distal LAD-->add ASA 81mg, continue aggressive medical management Non-ischemic cardiomyopathy EF 30 - 35% Cont ACEI, BB, and aldactone Hypertension Diabetes Dyslipidemia Left heart cath revealed a 60% distal LAD lesion. Recommend continuing medical management and aggressive risk factor modification. Follow up in the office in 1-2 weeks. The patient has been seen in conjunction with Dr. Arthur who agrees with the assessment and plan of care. Subjective Date of service: 08/27/16 Principal diagnosis: acute heart failure, cardiomyopathy Interval history: Pt. resting comfortably in bed. No new complaints. S/p left heart cath this morning. Objective Last Vital Signs Temp 98.5 F 08/27/16 05:52 Pulse 79 08/27/16 05:52 Resp 20 08/27/16 05:52 BP 143/91 08/27/16 05:52 Pulse Ox 99 08/27/16 05:52 - Physical Examination General: Appears Well, No Apparent Distress HEENT: Positive: PERRL, Normocephaly, Mucus Membranes Moist Neck: Positive: neck supple, trachea midline Cardiac: Positive: Reg Rate and Rhythm, S1/S2 Lungs: Positive: clear to auscultation Neuro: Positive: Grossly Intact Abdomen: Positive: Soft, Active Bowel Sounds. Negative: Tender Skin: Positive: Clear. Negative: Rash Extremities: Present: normal. Absent: edema - Labs and Meds Coagulation 08/27/16 Range/Units 04:36 PT 14.6 (12.2-14.9) Sec. INR 1.15 H (0.87-1.13) CBC 08/27/16 Range/Units 04:36 WBC 6.6 (4.5-11.0) K/mm3 RBC 4.91 (3.65-5.03) M/mm3 Hgb 13.4 (11.8-15.2) gm/dl Hct 40.8 (35.5-45.6) % Plt Count 173 (140-440) K/mm3 Lymph # 1.5 (1.2-5.4) K/mm3 [place] # 0.3 (0.0-0.8) K/mm3 Eos # 0.2 (0.0-0.4) K/mm3 Baso # 0.1 (0.0-0.1) K/mm3 Comprehensive Metabolic Panel 08/27/16 Range/Units 04:36 Sodium 140 (137-145) mmol/L Potassium 3.7 (3.6-5.0) mmol/L Chloride 102.7 (98-107) mmol/L Carbon Dioxide 25 (22-30) mmol/L BUN 23 H (9-20) mg/dL Creatinine 0.9 (0.8-1.5) mg/dL Glucose 150 H (75-100) mg/dL Calcium 8.7 (8.4-10.2) mg/dL - Imaging and Cardiology EKG: image reviewed Echo: report reviewed - Telemetry EKG Rhythm: Sinus Rhythm - EKG Sinus rhythms and dysrhythmias: sinus rhythm Chamber hypertrophy or enlargement: left ventricular hypertro Repolarization changes or abnormalities: nonspecific abnormality, ST segment, and/or T wave
--- NOTE | 2016-08-27 09:50 | Discharge Summary ---
Providers - Providers Date of Admission: 08/23/16 19:17 Date of discharge: 08/27/16 Attending physician: NEW FRANCIS MD 08/24/16 09:13 Consult to Physician [CONS] Routine Consulting Provider: GUADALUPE FLORES Reason For Exam: chf Place consult to:: Dr. Zafar Flores Notified:: Yomaira SIGALA Was contact made?: Yes If yes, spoke with:: Evelin Teixeira Time called:: 11:36 08/27/16 08:56 Consult to Cardiac Rehabilitation [CONS] Routine Reason For Exam: Cardiac Rehab Evaluation Primary care physician: PATIENT TRANSITION SPECIALIST Hospitalization Reason for admission: SHORTNESS OF BREATH Condition: Stable Hospital course: Patient is a 46-year-old male patient hypertension and diabetes presenting to the ER or shortness of breath. Patient reports he's been feeling increasing shortness of breath for the last 2 months, exacerbated with movement and alleviated with rest was associated dry cough. patients at the bedside reports patient can barely make it up a flight of stairs or to the bathroom without feeling short of breath. Patient reports orthopnea sleeping on 3 pillows and intermittent swelling of his lower extremities. Patient has no primary care follow-up and reports he gets medications from the ER. at the bedside also reports a unintentional 30 pound weight loss over the last 6 months. Otherwise no fevers, chills, headache, dizziness, nausea, vomiting, chest pain, abdominal pain, travel, trauma, falls, or sick contacts. Patient proceeded to have a stress test which was positive an echocardiogram had revealed EF of 30-35% with restrictive LV diastolic filling. Cardiology recommended cardiac catheterization which revealed Left heart cath revealed a 60 % distal LAD lesion. cardiology recommended Recommend continuing medical management and aggressive risk factor modification. Instructions were provided to the patient including dietary changes amongs others. patient is to follow with cardiology, BB, ACEI, lasix, was started. Patient is to have a monitoring of renal function with PCP and [employer] hr developer. * Acute systolic heart failure * Diabetes mellitus * Acute respirtory failure with hypoxia * Hypokalemia * HTN * Non-ischemic cardiomyopathy EF 30 - 35% * Dyslipidemia * Disposition: TO HOME OR SELFCARE Time spent for discharge: 35 MINS Core Measure Documentation - Palliative Care Palliative Care/ Comfort Measures: Not Applicable - Core Measures Any of the following diagnoses?: heart failure - VTE Discharge Requirements Deep Vein Thrombosis/Pulmonary Embolism Present on Admission: No - Heart Failure Discharge Requirements GEORGE/ARB for LVSD if EF <40%: Yes Beta milton at discharge: Yes Exam - Physical Exam Narrative exam: VITAL SIGNS: Reviewed. GENERAL: The patient appeared well nourished and normally developed. Vital signs as documented. HEAD: No signs of head trauma. EYES: Pupils are equal. Extraocular motions intact. EARS: Hearing grossly intact. MOUTH: Oropharynx is normal. NECK: No adenopathy, no JVD. CHEST: Chest with clear breath sounds bilaterally. No wheezes, rales, or rhonchi. CARDIAC: Regular rate and rhythm. S1 and S2, without murmurs, gallops, or rubs. VASCULAR: Trace edema left lower extremity. Peripheral pulses normal and equal in all extremities. ABDOMEN: Soft, without detectable tenderness. No sign of distention. No rebound or guarding, and no masses palpated. Bowel Sounds normal. MUSCULOSKELETAL: Good range of motion of all major joints. Extremities without clubbing, cyanosis. Trace edema left lower extremity. NEUROLOGIC EXAM: Alert and oriented x 3. No focal sensory or strength deficits. Speech normal. Follows commands. PSYCHIATRIC: Mood normal. SKIN: No rash or lesions. - Constitutional Vitals: Temp Pulse Resp BP Pulse Ox 98.5 F 73 20 124/71 99 08/27/16 09:40 08/27/16 09:40 08/27/16 09:40 08/27/16 09:40 08/27/16 09:40 Plan Activity: advance as tolerated, fall precautions Diet: low salt, diabetic Special Instructions: restrict fluid intake to (1200CC/DAILY) Follow up with: ALEJANDRO JEAN MD [Primary Care Provider] - 3-5 Days GUADALUPE FLORES MD [Staff Physician] - 14 Days Forms: CardCath PCI D/C Instructions, Work/School Release Form Prescriptions: AtorvaSTATin [Lipitor] 20 mg PO QHS #30 tablet ALBUTEROL Inhaler [ProAir HFA Inhaler] 2 puff IH QID PRN #1 inhalation PRN Reason: Shortness Of Breath Aspirin [Aspirin BABY CHEW TAB] 81 mg PO QDAY #30 tab.chew Carvedilol [Coreg] 12.5 mg PO BID #60 tablet Furosemide [Lasix TAB] 40 mg PO QDAY #30 tablet Spironolactone [Aldactone] 25 mg PO QDAY #30 tablet
[2016-08-27] MEDS ORDERED: BABY ASPIRIN PO SCH (10:00)
[2016-08-27] MEDS ORDERED: LASIX PO SCH (10:00)
[2016-08-27] MEDS: ALDACTONE PO SCH (10:10)
[2016-08-27] MEDS: COREG PO SCH (10:11)
[2016-08-27] MEDS: ZESTRIL PO SCH (10:12)
[2016-08-27 12:40] VITALS: BP 159/97
== END 2016-08-27 14:00 | disposition home or self-care (01) | DRG 286 ==
LOC: ED 08:46 → 4A 19:17
PROVIDERS: ADMIT Internal Medicine; ATTEND Internal Medicine
PROC: 3E0234Z Introduction of Serum, Toxoid and Vaccine into Muscle, Percutaneous Approach (ICD-10-PCS; 2016-08-23)
PROC: 4A023N7 Measurement of Cardiac Sampling and Pressure, Left Heart, Percutaneous Approach (ICD-10-PCS; principal; 2016-08-27)
PROC: B2111ZZ Fluoroscopy of Multiple Coronary Arteries using Low Osmolar Contrast (ICD-10-PCS; 2016-08-27)
PROC: B2151ZZ Fluoroscopy of Left Heart using Low Osmolar Contrast (ICD-10-PCS; 2016-08-27)
DX: I11.0 Hypertensive heart disease with heart failure (principal); J96.01 Acute respiratory failure with hypoxia; E11.9 Type 2 diabetes mellitus without complications; F03.90 Unspecified dementia, unspecified severity, without behavioral disturbance, psychotic disturbance, mood disturbance, and anxiety; Z72.89 Other problems related to lifestyle; Z91.19 Patient's noncompliance with other medical treatment and regimen; Z82.49 Family history of ischemic heart disease and other diseases of the circulatory system; E87.6 Hypokalemia; I50.21 Acute systolic (congestive) heart failure; I42.9 Cardiomyopathy, unspecified; E78.5 Hyperlipidemia, unspecified; Z23 Encounter for immunization
CPT/HCPCS: 36415; 71020; 71275; 78452; 80048; 80061; 81001; 82962; 83880; 84484; 85025; 85610; 90732; 93005; 93010; 93017; 93306; 93458; 99285; A9270-GY; A9502; C1894; J1644; J1815; J1940; J2250; J2785; J3010; J7040; Q9967

== ENCOUNTER 2016-09-24 16:55 | Emergency (ER) | payer SELFPAY ==
--- NOTE | 2016-09-24 17:33 | Cat Scan Report ---
FINAL REPORT EXAM: CT HEAD/BRAIN WO CON HISTORY: neuro deficits \T\lt; 6hrs or sx present upon awakening TECHNIQUE: Noncontrast serial axial images from skull base to vertex. PRIORS: None. FINDINGS: There is no mass effect or midline shift. There are no abnormal intra or extra-axial fluid collections. Cortical sulci and lateral ventricles are within normal limits for size and configuration. Basilar cisterns are patent. No acute intracranial hemorrhage is identified. Foci of relative hypodensity are seen in the white matter of the frontal lobes. There is a fluid level in the right maxillary sinus. No acute osseous abnormality is identified. IMPRESSION: 1. No abnormal mass or acute intracranial hemorrhage is identified. 2. Areas of relative hypodensity are seen in the white matter of the frontal lobes. This is a nonspecific finding. It may be related to chronic ischemic change from small vessel disease. 3. Right maxillary sinus disease. 4. The patient can be further assessed with MRI with diffusion-weighted imaging if indicated.
[2016-09-24 17:39] LABS: Basophils % (Auto) 0.9 % (0.0-1.8); Eosinophils % (Auto) 1.7 % (0.0-4.3); Hematocrit 39.1 % (35.5-45.6); Hemoglobin 13.1 gm/dl (11.8-15.2); Mean Corpuscular HGB Conc 33 % (32-34); Mean Corpuscular Hemoglobin 27 pg (28-32); Mean Corpuscular Volume 82 fl (84-94); Platelet Count 172 K/mm3 (140-440); Red Blood Count 4.77 M/mm3 (3.65-5.03); Red Cell Distribution Width 13.5 % (13.2-15.2); White Blood Count 6.2 K/mm3 (4.5-11.0)
[2016-09-24 17:49] LABS: INR 1.09 (0.87-1.13)
[2016-09-24 17:58] LABS: Anion Gap 21 mmol/L; BUN/Creatinine Ratio 21.53; Blood Urea Nitrogen 28 mg/dL (9-20); Calcium 8.7 mg/dL (8.4-10.2); Carbon Dioxide 26 mmol/L (22-30); Chloride 95.1 mmol/L (98-107); Glucose 213 mg/dL (75-100); Potassium 3.7 mmol/L (3.6-5.0); Sodium 138 mmol/L (137-145)
[2016-09-24 23:21] VITALS: BP 164/98
--- NOTE | 2016-09-24 23:29 | Emergency Department Report ---
HPI - General Chief Complaint: Neuro Symptoms/Deficit Time Seen by Provider: 09/24/16 17:10 - HPI HPI: The patient is a 46-year-old male who presents for evaluation of weakness. The patient reports developing sudden onset of left arm weakness, slurred speech 4 hours prior to arrival. He states that his Weakness was constant for 20-30 minutes, severe, exacerbated with use of the arm, and improved with rest. He states that his symptoms resolved just as he arrived to the emergency department. The patient denies fever, head injury, headache, neck pain, neck stiffness, seizure-like activity, vision or hearing changes, smell or taste changes, paresthesias, facial drooping, urine or bowel incontinence or retention , or other focal neurological deficit. ED Past Medical Hx - Past Medical History Previous Medical History?: Yes Hx Hypertension: Yes Hx Diabetes: Yes Hx Dementia: Yes - Surgical History Past Surgical History?: No - Social History Smoking Status: Never Smoker Substance Use Type: None - Medications Home Medications: Home Medications Medication Instructions Recorded Confirmed Last Taken Type Carvedilol [Coreg] 12.5 mg PO BID #60 tablet 08/26/16 09/24/16 09/24/16 Rx Spironolactone [Aldactone] 25 mg PO QDAY #30 tablet 08/26/16 09/24/16 09/24/16 Rx Aspirin [Aspirin BABY CHEW TAB] 81 mg PO QDAY #30 tab.chew 08/27/16 09/24/16 Rx AtorvaSTATin [Lipitor] 20 mg PO QHS #30 tablet 08/27/16 09/24/16 09/24/16 Rx Furosemide [Lasix TAB] 40 mg PO QDAY #30 tablet 08/27/16 09/24/16 09/24/16 Rx ALBUTEROL Inhaler [ProAir HFA 2 puff IH Q4-6H PRN 09/24/16 09/24/16 Unknown History Inhaler] Aspirin [Aspirin TAB] 325 mg PO QDAY #30 tablet 09/24/16 Unknown Rx Lisinopril [Zestril] 20 mg PO QDAY 09/24/16 09/24/16 09/24/16 History glipiZIDE [Glucotrol] 5 mg PO QDAY 09/24/16 09/24/16 Unknown History ED Review of Systems ROS: Stated complaint: SLURRED SPEECH Other details as noted in HPI Constitutional: denies: fever ENT: denies: throat or neck pain Respiratory: denies: cough, shortness of breath Cardiovascular: denies: chest pain Endocrine: denies unexplained weight loss or gain Gastrointestinal: denies: abdominal pain, nausea Genitourinary: denies: dysuria Musculoskeletal: denies: leg swelling Skin: denies: rash Neurological: reports slurred speech and weakness denies: headache Hematological/Lymphatic: denies: easy bleeding or easy bruising Psych: denies sadness or hopelessness Comment: All other systems reviewed and negative Physical Exam - Physical Exam Vital Signs: Vital Signs 09/24/16 09/24/16 17:06 17:32 Temperature 98.1 F Pulse Rate 84 74 Respiratory 16 Rate Blood Pressure 122/86 O2 Sat by Pulse 100 Oximetry Physical Exam: General: well-nourished, well-developed, no acute distress Head: Normocephalic, atraumatic Eyes: normal sclera, PERRL, EOM intact ENT: Mucous membranes are pale and dry Neck: No neck stiffness, no cervical adenopathy Respiratory: Breath sounds equal bilaterally, no wheezing, rales, or rhonchi Cardio: S1 and S2 present, no murmurs, rubs, gallops, capillary refill is delayed Abdomen: Normoactive bowel sounds, soft abdomen, no rigidity, no guarding or rebound tenderness Musc: No pitting edema Skin: No rash Neuro: alert oriented x4, normal cognition, speech normal, no facial drooping, no uvula or tongue deviation on protrusion, no deficit with rotation of neck or shoulder shrug, no obvious gross motor deficit in the upper or lower extremities with flexion or extension at the shoulder, elbow, wrist, hip, knee, or ankle bilaterally, no obvious gross sensation deficit, 2+ symmetric reflexes on DTR testing, no coordination deficit with [id number] or [id number] testing, romberg negative, patient able to to ambulate without abnormal gait Psych: Normal affect ED Course Vital Signs 09/24/16 09/24/16 17:06 17:32 Temperature 98.1 F Pulse Rate 84 74 Respiratory 16 Rate Blood Pressure 122/86 O2 Sat by Pulse 100 Oximetry ED Medical Decision Making - Lab Data Result diagrams: 09/24/16 17:22 09/24/16 17:22 - Medical Decision Making The patient was seen and examined by myself. The patient is placed on a diagnostic cardiac sonographer and continuous pulse ox. On initial evaluation, the patient was found to be in no distress. Evaluation orders were placed. CT scan the head is negative for acute infarct or hemorrhage. Lab results revealed hyperglycemia, glucose 213, and otherwise labs are unremarkable. As the patient's symptoms are resolved and were transient for minutes, the patient's evaluation is suggestive of transient ischemic attack. The patient is given a tablet of aspirin. The patient was reevaluated and reported that his symptoms remained completely resolved. The patient is stable for discharge with outpatient follow -up. The patient is given follow-up and return instructions. The patient expressed understanding and agreed with the plan. The patient is discharged in stable condition. Critical care attestation.: If time is entered above; I have spent that time in minutes in the direct care of this critically ill patient, excluding procedure time. ED Disposition Clinical Impression: Acute hyperglycemia TIA (transient ischemic attack) Qualifiers: Transient cerebral ischemia type: unspecified Qualified Code(s): G45.9 - Transient cerebral ischemic attack, unspecified Disposition: DC-01 TO HOME OR SELFCARE Is pt being admited?: No Does the pt Need Aspirin: No Condition: Stable Instructions: Transient Ischemic Attack (ED) Prescriptions: Aspirin [Aspirin TAB] 325 mg PO QDAY #30 tablet Referrals: PRIMARY CAREMD [Primary Care Provider] - 3-5 Days SYED LOPEZ MD [Staff Physician] - 3-5 Days Time of Disposition: 23:41
[2016-09-24] MEDS ORDERED: BABY ASPIRIN PO ONE (23:41)
== END 2016-09-25 00:05 | disposition home or self-care (01) ==
LOC: ED 16:55
DX: G45.9 Transient cerebral ischemic attack, unspecified (principal); E11.65 Type 2 diabetes mellitus with hyperglycemia; I10 Essential (primary) hypertension; F03.90 Unspecified dementia, unspecified severity, without behavioral disturbance, psychotic disturbance, mood disturbance, and anxiety
CPT/HCPCS: 36415; 70450; 80048; 82140; 82805; 83880; 84484; 85025; 85610; 85670; 85730; 93005; 93010; 99285; G0480; 80320

== ENCOUNTER 2016-09-29 14:42 | Inpatient (IN) | payer SELFPAY ==
--- NOTE | 2016-09-29 15:37 | Cat Scan Report ---
CT HEAD WITHOUT CONTRAST: HISTORY: Weakness. Serial contiguous axial images were obtained through the cranium. Intravenous contrast material was not administered. The ventricles are normal in size and appearance. There is no mass effect or midline shift. No areas of abnormally increased or decreased attenuation are seen. No mass lesion is seen. A fluid level is identified in the right maxillary sinus. The remaining sinuses are clear. IMPRESSION: Cranial CT scan within normal limits. Right maxillary sinus disease, correlate for acute sinusitis. No significant change since 09/24/16.
[2016-09-29 16:02] LABS: Basophils % (Auto) 1.2 % (0.0-1.8); Eosinophils % (Auto) 2.1 % (0.0-4.3); Hematocrit 41.6 % (35.5-45.6); Hemoglobin 14.1 gm/dl (11.8-15.2); Mean Corpuscular HGB Conc 34 % (32-34); Mean Corpuscular Hemoglobin 28 pg (28-32); Mean Corpuscular Volume 82 fl (84-94); Platelet Count 229 K/mm3 (140-440); Red Blood Count 5.05 M/mm3 (3.65-5.03); Red Cell Distribution Width 13.7 % (13.2-15.2); White Blood Count 6.4 K/mm3 (4.5-11.0)
[2016-09-29 16:10] LABS: Anion Gap 19 mmol/L; Blood Urea Nitrogen 27 mg/dL (9-20); Calcium 9.6 mg/dL (8.4-10.2); Carbon Dioxide 27 mmol/L (22-30); Chloride 95.5 mmol/L (98-107); Glucose 155 mg/dL (75-100); Potassium 3.4 mmol/L (3.6-5.0); Sodium 138 mmol/L (137-145)
[2016-09-29 16:12] LABS: INR 1.11 (0.87-1.13)
[2016-09-29 16:13] LABS: Partial Thromboplastin Time 31.2 Sec. (24.2-36.6)
[2016-09-30] MEDS ORDERED: ASPIRIN PO ONE (00:26)
--- NOTE | 2016-09-30 00:31 | Emergency Department Report ---
HPI - General Chief Complaint: Neuro Symptoms/Deficit Time Seen by Provider: 09/30/16 00:16 - HPI HPI: Room 4 The patient is a 46-year-old male presenting with a chief complaint hand paresthesia and dysarthria. The patient states today at approximately 12:30 both of his hands became numb and his speech was slurred. Patient states symptoms both lasted for several seconds and then resolved. Patient denied having dysphagia or headache. The patient's only complaint now is feeling hungry. Of note the patient was here approximate 4 days ago with the same symptoms and diagnosed with TIA. The patient states he has not had a chance to follow-up with a neurologist yet or obtain a carotid Doppler. The patient states he has been compliant with taking 325 mg of aspirin daily Location: [see above] Duration: Seconds Quality: Dysarthria, numbness Severity: Moderate Modifying factors: [see above] Context: [see above] Mode of transportation: Unknown ED Past Medical Hx - Past Medical History Previous Medical History?: Yes Hx Hypertension: Yes Hx CVA: No (TIA) Hx Diabetes: Yes Hx Dementia: Yes - Surgical History Past Surgical History?: No - Family History Family history: no significant - Social History Smoking Status: Never Smoker Substance Use Type: None (denies illicit drug use), Alcohol (occasional), Prescribed - Medications Home Medications: Home Medications Medication Instructions Recorded Confirmed Last Taken Type Carvedilol [Coreg] 12.5 mg PO BID #60 tablet 08/26/16 09/24/16 09/24/16 Rx Spironolactone [Aldactone] 25 mg PO QDAY #30 tablet 08/26/16 09/24/16 09/24/16 Rx Aspirin [Aspirin BABY CHEW TAB] 81 mg PO QDAY #30 tab.chew 08/27/16 09/24/16 Rx AtorvaSTATin [Lipitor] 20 mg PO QHS #30 tablet 08/27/16 09/24/16 09/24/16 Rx Furosemide [Lasix TAB] 40 mg PO QDAY #30 tablet 08/27/16 09/24/16 09/24/16 Rx ALBUTEROL Inhaler [ProAir HFA 2 puff IH Q4-6H PRN 09/24/16 09/24/16 Unknown History Inhaler] Aspirin [Aspirin TAB] 325 mg PO QDAY #30 tablet 09/24/16 Unknown Rx Lisinopril [Zestril] 20 mg PO QDAY 09/24/16 09/24/16 09/24/16 History glipiZIDE [Glucotrol] 5 mg PO QDAY 09/24/16 09/24/16 Unknown History ED Review of Systems ROS: Stated complaint: SLURRED SPEECH/NUMBNESS IN BOTH ARMS/HANDS Other details as noted in HPI Comment: All other systems reviewed and negative Constitutional: denies: chills, fever Eyes: denies: eye pain, eye discharge, vision change ENT: denies: ear pain, throat pain Respiratory: denies: cough, shortness of breath, wheezing Cardiovascular: denies: chest pain, palpitations Endocrine: no symptoms reported Gastrointestinal: denies: abdominal pain, nausea, diarrhea Genitourinary: denies: urgency, dysuria Musculoskeletal: denies: back pain, joint swelling, arthralgia Skin: denies: rash, lesions Neurological: paresthesias, other (dysarthria). denies: headache Psychiatric: denies: anxiety, depression Hematological/Lymphatic: denies: easy bleeding, easy bruising Physical Exam - Physical Exam Vital Signs: Vital Signs 09/29/16 14:45 Temperature 98 F Pulse Rate 86 Respiratory 18 Rate Blood Pressure 145/99 O2 Sat by Pulse 100 Oximetry Physical Exam: GENERAL: The patient is well-developed well-nourished male sitting on stretcher not appearing to be in acute distress. [] HEENT: Normocephalic. Atraumatic. Extraocular motions are intact. Patient has moist mucous membranes. NECK: Supple. Trachea midline CHEST/LUNGS: Clear to auscultation. There is no respiratory distress noted. HEART/CARDIOVASCULAR: Regular. There is no tachycardia. There is no gallop rub or murmur. ABDOMEN: Abdomen is soft, nontender. Patient has normal bowel sounds. There is no abdominal distention. SKIN: There is no rash. There is no edema. There is no diaphoresis. NEURO: The patient is awake, alert, and oriented. The patient is cooperative. The patient has no focal neurologic deficits. The patient has normal speech. Cranial nerves II througThere is no evidence of acute injury. ED Course Vital Signs 09/29/16 14:45 Temperature 98 F Pulse Rate 86 Respiratory 18 Rate Blood Pressure 145/99 O2 Sat by Pulse 100 Oximetry ED Medical Decision Making - Lab Data Result diagrams: 09/29/16 15:33 09/29/16 15:33 Laboratory Tests 09/29/16 09/29/16 09/29/16 15:33 15:33 15:33 WBC 6.4 RBC 5.05 H Hgb 14.1 Hct 41.6 MCV 82 L MCH 28 MCHC 34 RDW 13.7 Plt Count 229 Lymph % (Auto) 20.5 Kendall % (Auto) 5.3 Eos % (Auto) 2.1 Baso % (Auto) 1.2 Lymph # 1.3 Kendall # 0.3 Eos # 0.1 Baso # 0.1 Seg Neutrophils % 70.9 H Seg Neutrophils # 4.6 PT 14.2 INR 1.11 APTT 31.2 Thrombin Time Sodium 138 Potassium 3.4 L Chloride 95.5 L Carbon Dioxide 27 Anion Gap 19 BUN 27 H Creatinine 1.2 Estimated GFR > 60 BUN/Creatinine Ratio 22.50 Glucose 155 H Calcium 9.6 Troponin T < 0.010 09/29/16 15:33 WBC RBC Hgb Hct MCV MCH MCHC RDW Plt Count Lymph % (Auto) Kendall % (Auto) Eos % (Auto) Baso % (Auto) Lymph # Kendall # Eos # Baso # Seg Neutrophils % Seg Neutrophils # PT INR APTT Thrombin Time 15.9 Sodium Potassium Chloride Carbon Dioxide Anion Gap BUN Creatinine Estimated GFR BUN/Creatinine Ratio Glucose Calcium Troponin T - EKG Data EKG shows normal: sinus rhythm Rate: normal - EKG Data When compared to previous EKG there are: no significant change Interpretation: unchanged when compared t (09/24/2016) - Radiology Data Radiology results: report reviewed (CT head), image reviewed (CT head) CT head (read by radiologist)-cranial CT scan within normal limits. Right maxillary sinus disease, correlate for acute sinusitis. No significant change since 09/24/2016 - Differential Diagnosis TIA Critical care attestation.: If time is entered above; I have spent that time in minutes in the direct care of this critically ill patient, excluding procedure time. ED Disposition Clinical Impression: TIA (transient ischemic attack) Disposition: OP ADMIT IP TO THIS HOSP Is pt being admited?: Yes Does the pt Need Aspirin: Yes Condition: Fair Referrals: PRIMARY CARE, [Primary Care Provider] - 3-5 Days Time of Disposition: 00:33 (hospitalist paged)
[2016-09-30] MEDS ORDERED: D50W (25GM) IV PRN (02:13)
[2016-09-30] MEDS ORDERED: ASPIRIN ONE (02:41)
[2016-09-30] MEDS ORDERED: NACL 0.9% 1000 ML 1,000 ML ONE (02:43)
[2016-09-30] MEDS ORDERED: NACL 0.9% 1000 ML 1,000 ML IV SCH (03:00)
[2016-09-30 06:28] LABS: Creatine Kinase MB 1.6 ng/mL (0.0-4.0)
[2016-09-30 06:29] LABS: Creatine Kinase 92 units/L (55-170)
[2016-09-30] MEDS: ASPIRIN PO SCH (10:19)
--- NOTE | 2016-09-30 11:32 | Magnetic Resonance Report ---
MRI OF THE BRAIN WITHOUT CONTRAST: HISTORY: TIA PROCEDURE: Multiplanar, multisequence MR imaging of the brain without IV contrast was performed. FINDINGS: The brain parenchyma signal intensity and its diana white interface are within normal limits on all sequences. No evidence for acute ischemia, hemorrhage or mass. No chronic infarct or extra-axial fluid collection. There appears to be mild mass effect on the right side of the medulla from CSF intensity fluid. This most likely represents a nonvisualized subarachnoid cyst near the foramen magnum measuring approximately 1.5 x 1.2 cm. This is best demonstrated on coronal flair image 11. This is probably an incidental finding. The midline structures are central. The basal cisterns are patent. Normal ventricular size. The orbital cavities and sella turcica demonstrate no abnormality. Mucosal thickening and small fluid in the right maxillary sinus is again noted. The remaining sinuses and mastoid air cells are clear. IMPRESSION: No evidence for acute ischemia or hemorrhage. 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 This is probably an incidental finding. Right maxillary sinus disease. Correlate for acute sinusitis.
[2016-09-30] MEDS ORDERED: PNEUMOVAX 23 IM ONE (12:00)
[2016-09-30] MEDS ORDERED: PROAIR IH PRN (15:52)
[2016-09-30] MEDS ORDERED: PROVENTIL IH PRN (16:04)
[2016-09-30] MEDS: LASIX PO SCH (16:30)
[2016-09-30] MEDS: ALDACTONE PO SCH (16:30)
--- NOTE | 2016-09-30 17:00 | Event Note ---
Date: 09/30/16 Patient seen and evaluated, medical records reviewed Admitted this morning with CVA-like symptoms, not a candidate for TPA, neuro workup is in progress Patient has no new complaints, slurred speech, right upper extremity numbness completely resolved Continue current management, possible discharge home tomorrow if workup is negative and patient is stable Plan of care discussed with the patient and his nurse
[2016-09-30] MEDS: COREG PO SCH (21:36)
--- NOTE | 2016-10-01 09:24 | Admit Criteria Form ---
Admission Criteria Documentation: NEUROLOGY GRG Clinical Indications for Admission to Inpatient Care (Place ' X' for any and all applicable criteria): Hospital admission is needed for appropriate care of the patient because of 1 or more of the following: [ ]I. Encephalitis [ ]II. Severe [employer] infections indicated by 1 or more of the following(1)(2)(3) : [ ]a) Intracranial abscess [ ]b) Spinal abscess or myelitis [ ]c) Tuberculous or other nonbacterial, nonviral [employer] infection(8) [ ]III. Vasculitis and 1 or more of the following(14)(15): []a) Altered mental status that is severe or persistent or other acute neurologic change []b) Psychosis []c) Seizure [ ]IV. Status epilepticus or repetitive seizures not controlled with emergent treatment [A] (7)(8) [ ]V. Altered mental status that is severe or persistent [ ]. Transient alteration in consciousness with high-risk etiology; examples include (12)(13): [ ]a) Cardiovascular source [ ]b) Cataplexy [ ]VII. Cerebral aneurysm requiring ANY ONE of the following(14): [ ]a) IV antihypertensives or vasoactive agents [ ]b) Sedation and analgesia for suspected leak [ ]c) Need for external ventricular drainage and cerebral perfusion pressure monitoring [ ]d) Emergent evaluation to determine need for surgical clipping or endovascular coiling by interventional radiology. If surgery is required ( Also use Craniotomy, Supratentorial, for Surgery of Bleeding Intracranial Aneurysm (for bleeding aneurysm) or Craniotomy, Supratentorial (for nonbleeding aneurysm) as appropriate. [ ]VIII. New-onset severe neurologic symptom requiring inpatient care indicated by ANY ONE of the following: [ ]a) Aphasia(15) [ ]b) Weakness (grade 3 or less) [ ]c) Paralysis (eg, hemiplegia) [ ]d) Spasticity(16) [ ]e) Dystonia [ ]e) Ataxia(17) [ ]f) Amnesia(18) [ ]g) Involuntary movements(19) [ ]h) Vertigo [ ] Visual loss [ ]i) Other severe neurologic finding (eg, papilledema, mass effect on imaging, myoclonus not treatable at alternative level of care (eg, observation care) [ ]IX. Guillain-[place] syndrome(20) [ ]X. Myasthenia gravis crisis or inpatient monitoring need as indicated by 1 or more of the following(21): [ ]a) Intensive treatment (eg, course of plasmapheresis) with inadequate outpatient situation to monitor patients status [ ]b) Inadequate airway protection [ ]c) Respiratory insufficiency requiring intubation or inpatient. monitoring [ ]d) Progressive dysphagia with failure to thrive [ ]XI. Multiple sclerosis or other acute demyelinating disease requiring inpatient care as indicated by 1 or more of the following (22)(23): [ ]a) Acute severe deterioration requiring inpatient treatment (eg, IV steroids, plasmapheresis, close observation) [ ]b) Acute complication requiring inpatient care (eg, sepsis, severe decubitus, aspiration) [ ]XII.Parkinson disease requiring inpatient care (Also use Optimal Recovery Care Criteria or General Recovery Criteria as appropriate) indicated by 1 or more of the following(25): [ ]a) Infection (eg, aspiration pneumonia) not treatable at alternative level of care [ ]b Dehydration that is severe or persistent [ ]c) Life-threatening agitation or psychotic behavior not treatable on emergency, observation care, or alternative level (eg, residential) basis [ ]d) Severe medication withdrawal effects (eg, freezing, neuroleptic malignant syndrome) not responsive to emergency and observation care treatment ( as appropriate) [ ]e) Other severe manifestation not treatable at alternative level of care [ ]XII. Amyotrophic lateral sclerosis with inpatient care needs as indicated by ANY ONE of the following(26): [ ]a) Acute complications (eg, aspiration pneumonia, sepsis ) requiring inpatient care ( see other optimal Recovery Guideline as appropriate) [ ]b) Dehydration that is severe persistent AND artificial support desired [ ]c) Inadequate airway protection AND artificial support desired [ ]d) Severe ventilatory insufficiency AND artificial support desired [ ]XIII. Myasthenia gravis crisis or inpatient monitoring need as indicated by 1 or more of the following(21): [] a) Inadequate airway protection []b) Respiratory insufficiency requiring intubation or inpatient monitoring []c) Progressive dysphagia with failure to thrive []d) Intensive treatment (e.g., course of plasmapheresis) with inadequate outpatient situation to monitor patients status [ ]XIV. Multiple sclerosis or other acute demyelinating disease requiring inpatient care indicated by 1 or more of the following[C](36)(43)(44)(45)(46): []a) Acute severe deterioration requiring inpatient treatment (eg, IV steroids, plasmapheresis, close observation) []b) Acute complication requiring inpatient care (eg, sepsis, severe decubitus, aspiration) [ ]XV. Intracranial hypertension (e.g., pseudotumor cerebri) requiring inpatient care (e.g., acute visual loss, inadequate oral intake) (47)(48)(49) [ ]XVI. Parkinson disease requiring inpatient care (Also use Optimal Recovery Care Criteria or General Recovery Criteria as appropriate) indicated by 1 or more of the following(25): [] a) Infection (e.g., aspiration pneumonia) not treatable at alternative level of care []b) Volume depletion not responsive to emergency and observation care treatment (as appropriate) []c) Life-threatening agitation or psychotic behavior not treatable on emergency, observation care, or alternative level (e.g., residential) basis []d) Severe medication withdrawal effects (e.g., freezing, neuroleptic malignant syndrome) not responsive to emergency and observation care treatment (as appropriate) []e) Other severe manifestation not treatable at alternative level of care [ ]XVII. Amyotrophic lateral sclerosis with inpatient care needs as indicated by1 or more of the following(42): []a) Acute complications (eg, aspiration pneumonia, sepsis) requiring inpatient care (see other Optimal Recovery Guideline or General Recovery Guideline as appropriate) []b) Dehydration that is severe or persistent AND artificial support desired []c) Inadequate airway protection AND artificial support desired []d) Severe ventilatory insufficiency AND artificial support desired [ ]XVIII. Severe myopathy, neuropathy, or other neuromuscular disease indicated by 1 or more of the following(42)(52)(53)(54): []a ) New-onset severe diffuse weakness (eg, strength 3/5 or less) []b) Severe dysphagia []c) Dyspnea at rest or with minimal exertion (new) []d) Inadequate airway protection []e) Inadequate ventilation indicated by 1 or more of the following : i) Partial pressure of carbon dioxide greater than 44 mm Hg ( 5.9 kPa) (new) ii) Reduced peak expiratory flow rate (new) iii) Vital capacity less than 50% of predicted (less than 15 mL/kg) iv) Peak inspiratory force less negative than -30 cm H2O (- 2942 Pa) [ ]XVII.Complications of congenital or degenerative disease (eg, infection, seizures, dehydration, injury) not responsive to emergency and observation care treatment (as appropriate ) [C](16)(29)(30) [ ]XVIII.Suspected or confirmed nerve or muscle toxic injury, including ANY ONE of the following: [ ]a) Rhabdomyolysis(31) i) Acute renal failure ii) Dehydration that is severe or persistent iii) Altered mental status that is severe or persistent iv) Electrolyte abnormality that remains after emergency or observation level care ( as appropriate) [ ]b) Botulism(32) [ ]c) Other severe toxin-induced sign or symptom [ ]XIX. Neurologic trauma requiring inpatient treatment (medical) indicated by ANY ONE of the following(33)(34): [ ]a) Vital signs or neurologic signs more frequently than every 4 hours [ ]b) Hyperosmolar therapy [ ]c) Respiratory monitoring [ ]d) Intracranial pressure monitoring and treatment [ ]e) Stabilization and immobilization device placement (eg, braces, body jacket) [ ]f) Intubation & mechanical ventilation for airway protection or therapeutic hyperventilation [ ]g) Other treatment or monitoring needed that requires inpatient level of care [ ]XX.Complications of neurologic devices (eg, ventricular shunt, neurostimulator) requiring 1 or more of the following(35)(36): [ ]a) IV antibiotics with monitoring while awaiting culture results [ ]b) Monitoring for hydrocephalus [X ]XXI. Neurology condition symptom, or finding for which emergency and observation care have failed or are not considered appropriate. See General Criteria: Observation Care ISC, General Admission Criteria GRG, or Pediatric General Admission Criteria GRG guideline as appropriate. The original [facility] [employer] content created by [facility] has been revised. The portions of the content which have been revised are identified through the use of italic text or in bold, and [facility] has neither reviewed nor approved the modified material. All other unmodified content is copyright [facility] Please see references footnoted in the original [facility] edition 2016 Admission Criteria Met: Yes
[2016-10-01] MEDS: ASPIRIN PO SCH (09:29)
[2016-10-01] MEDS: LASIX PO SCH (09:30)
[2016-10-01] MEDS: COREG PO SCH (09:30)
[2016-10-01] MEDS: ALDACTONE PO SCH (09:30)
--- NOTE | 2016-10-01 11:49 | Discharge Summary ---
Providers - Providers Date of Admission: 09/30/16 01:59 Date of discharge: 10/01/16 Attending physician: MARGUERITE ESPINAL 09/30/16 02:09 Consult to Physician [CONS] Routine Consulting Provider: AMELIA ROSE Reason For Exam: RECURRENT TIA Place consult to:: AMELIA ROSE Notified:: Julia SIGALA Phone number called:: [phone]. [phone] Was contact made?: Yes If yes, spoke with:: Voicemail left with consult info left for [employer] Weiner Time called:: 07:23 09/30/16 06:07 Speech Therapy Evaluation and Treat [CONS] Routine Reason For Exam: SPEECH IMPAIRMENT 09/30/16 06:08 Physical Therapy Evaluation and Treat [CONS] Routine Comment: Reason For Exam: TIA Primary care physician: [employer]HE[employer]IST Hospitalization Reason for admission: Paresthesia upper limbs and slurring speech Condition: Fair Pertinent studies: CT head without contrast; no acute intracranial abnormalities noted, right maxillary sinus disease, correlate for acute sinusitis MRI brain; no evidence of acute ischemia or drainage 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 He shouldn't cross in the emergency room a couple of days ago with similar symptoms and was diagnosed as TIA CT head findings consistent with acute sinusitis however patient did not have any symptoms, advised to see ENT for further evaluation and management Patient did not have any neurologic deficits, calm paresthesias and dysarthria completely resolved On the day of discharge patient was comfortable in no new complaints vital signs are stable [id number] evaluation and physical examination done by me prior to discharge did not show any new changes Patient is hemodynamically and clinically stable for discharge and does not need any further acute inpatient care at this time , Discharge diagnosis; Transient ischemic attack Acute on chronic systolic congestive heart failure EF 30-35% Paresthesia Hypertension Dyslipidemia Disposition: - TO HOME OR SELFCARE Time spent for discharge: 31 min Core Measure Documentation - Palliative Care Palliative Care/ Comfort Measures: Not Applicable - Core Measures Any of the following diagnoses?: heart failure - Heart Failure Discharge Requirements GEORGE/ARB for LVSD if EF <40%: Yes Beta milton at discharge: Yes Exam - Constitutional Vitals: Temp Pulse Resp BP Pulse Ox 98.2 F 66 16 168/102 98 10/01/16 08:07 10/01/16 09:30 10/01/16 08:07 10/01/16 09:30 10/01/16 08:07 General appearance: Present: no acute distress, well-nourished - EENT Eyes: Present: PERRL, EOM intact - Neck Neck: Present: supple, normal ROM - Respiratory Respiratory effort: normal Respiratory: negative: diminished, rales, rhonchi - Cardiovascular Rhythm: regular Heart Sounds: Present: S1 & S2 - Extremities Extremities: no ischemia, No edema - Abdominal General gastrointestinal: Present: soft, non-tender, non-distended, normal bowel sounds - Integumentary Integumentary: Present: clear, warm - Musculoskeletal Musculoskeletal: strength equal bilaterally - Psychiatric Psychiatric: appropriate mood/affect, cooperative - Neurologic Neurologic: CNII-XII intact, moves all extremities Plan Activity: no restrictions Diet: low salt, other (cardiac diet) Additional Instructions: If you Have chest pain or shortness of breath, have any episodes of sudden weakness, slurred speech contact M.D. or go to emergency room Follow up with: ALEJANDRO JEAN MD [Primary Care Provider] - 3-5 Days PIPPA VELASQUEZ MD [Staff Physician] - 7 Days Forms: Work/School Release Form
[2016-10-01 15:54] VITALS: BP 140/74
[2016-10-01] MEDS ORDERED: ZESTRIL PO SCH (16:00)
--- NOTE | 2016-10-06 10:11 | Vascular Lab Report ---
CAROTID DUPLEX STUDY: RIGHT PSVEDV CCA PROX:[id number] CCA DIST:[id number] ICA PROX:[id number] ICA MID:7436 ICA DIST:68 30 ECA: 1106 VERT: 78 28 LEFT PSVEDV CCA PROX:122 6 CCA DIST:100 9 ICA PROX:469 ICA MID:5515 ICA DIST:6010 ECA: 1086 VERT: 74 24 REASON FOR EXAM: 6. COMMENTS ON THE RIGHT: Doppler frequency analysis is consistent with 74 of the internal carotid artery. The common carotid artery is patent. The external carotid artery is patent. The vertebral artery has antegrade flow. COMMENTS ON THE LEFT: Doppler frequency analysis is consistent with 16 to 49 percent diameter reduction of the internal carotid artery. Minimal amount of plaque is seen. The common carotid artery is patent. The external carotid artery is patent. The vertebral artery has antegrade flow. IMPRESSION: Less than 50% diameter reduction in the internal carotid arteries bilaterally. Consider repeat carotid artery duplex in 12 months.
== END 2016-10-01 15:47 | disposition home or self-care (01) | DRG 69 ==
LOC: ED 14:42 → 4A 09-30 01:59
PROVIDERS: ADMIT Internal Medicine; ATTEND Internal Medicine
DX: G45.9 Transient cerebral ischemic attack, unspecified (principal); I10 Essential (primary) hypertension; E11.9 Type 2 diabetes mellitus without complications
CPT/HCPCS: 36415; 70450; 70551; 80048; 82550; 82553; 82962; 84484; 85025; 85610; 85670; 85730; 90732; 93005; 93010; 93308; 93321; 93325; 93880; 96360; A9270-GY; J1815; J7030